=== PATIENT | female | born 1945 | race Caucasian/White ===

== ENCOUNTER 2020-09-23 00:47 | Inpatient (IN) | payer OTHER ==
[~2020-09-23] VITALS: Ht 154.9 cm; Wt 70.0 kg
[~2020-09-23 00:47] MED LIST: BISA10SU12 RC; DOCU100C36 PO; FLUD0.1T3 PO; Insulin Glargine,Hum SQ; LACT10SO PO; PANT40TA49 PO
[2020-09-23] MEDS ORDERED: MIDO10TA PO (02:58)
[2020-09-23] MEDS ORDERED: ONDA4TAB5 PO (02:58)
[2020-09-23] MEDS ORDERED: morphine solution SL (02:58)
[2020-09-23] MEDS ORDERED: INSU200I SQ (02:58)
[2020-09-23] MEDS ORDERED: INSU100V10 SQ (02:58)
[2020-09-23 04:20] LABS: BASOPHILS % (AUTO) 0.6 % (0.0-2.0); EOSINOPHILS % (AUTO) 0.9 % (0.0-7.0); MEAN CORPUSCULAR VOLUME 91.3 fL (75.5-95.3); MONOCYTES # (AUTO) 0.2 K/uL (2.0-10.0); NEUTROPHILS # (AUTO) 0.9 K/uL (1.8-8.9)
[2020-09-23 04:22] LABS: HEMATOCRIT 26.8 % (31.2-41.9); LYMPHOCYTES # (AUTO) 0.4 K/uL (20.0-40.0); LYMPHOCYTES % (AUTO) 24.6 % (20.5-51.5); MEAN CORPUSCULAR HEMOGLOBIN 30.6 uug (24.7-32.8); MEAN CORPUSCULAR HGB CONC 34 g/dL (32.3-35.6); MONOCYTES % (AUTO) 13.1 % (0.0-11.0); NEUTROPHILS % (AUTO) 60.8 % (38.5-71.5); PLATELET COUNT (AUTO) 127 K/uL (179-408); RED BLOOD CELL COUNT(AUTO) 2.94 MIL/uL (3.63-4.92)
[2020-09-23 04:41] LABS: WHITE BLOOD COUNT (AUTO) 1.5 K/uL (3.8-11.8)
[2020-09-23 04:45] LABS: CARBON DIOXIDE 27 mmol/L (21-32); CHLORIDE 97 mmol/L (98-107); GLUCOSE 169 mg/dL (74-106); POTASSIUM 4.3 mmol/L (3.5-5.1); UREA NITROGEN, BLOOD 56 mg/dL (7-18)
[2020-09-23 04:46] LABS: ALANINE AMINOTRANSFERASE 20 U/L (14-59); ALKALINE PHOSPHATASE 333 U/L (50-136); ASPARTATE AMINOTRANSFERASE 30 U/L (15-37); BILIRUBIN,TOTAL 0.4 mg/dL (0.2-1.0); FERRITIN 898 ng/mL (8-252)
[2020-09-23 04:48] LABS: TOTAL PROTEIN, SERUM 6.9 g/dL (6.4-8.2)
[2020-09-23] MEDS ORDERED: CEFTRIAXONE 1 G in IV DEXTROSE 5% 50 ML IV ONE (05:00)
[2020-09-23] MEDS ORDERED: AZITHROMYCIN IV 500 MG in IV DEXTROSE 5% 250 ML IV ONE (05:00)
[2020-09-23] MEDS ORDERED: DEXAMETHASONE SOD PHOSPHATE 4 MG INJ IV ONE (05:00)
[2020-09-23 05:05] LABS: CREATINE KINASE, TOTAL 23 U/L (26-192); LACTATE DEHYDROGENASE 254 U/L (81-234)
[2020-09-23] MEDS ORDERED: DEXAMETHASONE SOD PHOSPHATE 10 MG INJ ONE (05:26)
[2020-09-23] MEDS ORDERED: CEFTRIAXONE /D5W 50ML IVPB **ER PYXIS IV ONE (05:26)
[2020-09-23 06:02] LABS: EOSINOPHILS % (MANUAL) 1 % (0-8); LYMPHOCYTES % (MANUAL) 22 % (20-40); MONOCYTES % (MANUAL) 13 % (2-10); NEUTROPHILS % (MANUAL) 64 % (42-75)
[2020-09-23] MEDS ORDERED: AZITHROMYCIN 500MG/ D5W 250ML IVPB **ER PYXIS ONLY IV ONE (06:07)
--- NOTE | 2020-09-23 08:20 | NUR ---
Pt sleeping in bed, no distress noted.
[2020-09-23 09:59] LABS: CARBON DIOXIDE 25 mmol/L (21-32); CHLORIDE 100 mmol/L (98-107); CREATININE 2.7 mg/dL (0.6-1.3); GLUCOSE 212 mg/dL (74-106); POTASSIUM 4.4 mmol/L (3.5-5.1); UREA NITROGEN, BLOOD 54 mg/dL (7-18)
[2020-09-23 10:00] LABS: BASOPHILS % (AUTO) 0.5 % (0.0-2.0); EOSINOPHILS % (AUTO) 0.6 % (0.0-7.0); HEMATOCRIT 25.2 % (31.2-41.9); HEMOGLOBIN 8.5 g/dL (10.9-14.3); LYMPHOCYTES # (AUTO) 0.3 K/uL (20.0-40.0); LYMPHOCYTES % (AUTO) 29.4 % (20.5-51.5); MEAN CORPUSCULAR HGB CONC 34 g/dL (32.3-35.6); MEAN CORPUSCULAR VOLUME 91.8 fL (75.5-95.3); MONOCYTES # (AUTO) 0.1 K/uL (2.0-10.0); MONOCYTES % (AUTO) 6.7 % (0.0-11.0); NEUTROPHILS # (AUTO) 0.6 K/uL (1.8-8.9); NEUTROPHILS % (AUTO) 62.8 % (38.5-71.5); PLATELET COUNT (AUTO) 107 K/uL (179-408); RED BLOOD CELL COUNT(AUTO) 2.74 MIL/uL (3.63-4.92)
[2020-09-23 10:10] LABS: ALANINE AMINOTRANSFERASE 13 U/L (14-59); ALKALINE PHOSPHATASE 296 U/L (50-136); ASPARTATE AMINOTRANSFERASE 27 U/L (15-37); BILIRUBIN,TOTAL 0.2 mg/dL (0.2-1.0); TOTAL PROTEIN, SERUM 6.7 g/dL (6.4-8.2)
[2020-09-23 10:26] LABS: WHITE BLOOD COUNT (AUTO) 0.9 K/uL (3.8-11.8)
[2020-09-23] MEDS ORDERED: ONDANSETRON HCL 4 MG TABLET PO PRN (13:15)
[2020-09-23] MEDS ORDERED: BISACODYL 10 MG SUPP.RECT RC PRN (13:15)
[2020-09-23] MEDS ORDERED: Z GUARD REMEDY PASTE 57 GM TUBE TOP PRN (13:30)
[2020-09-23] MEDS ORDERED: MAGNESIUM HYDROXIDE 30 ML LIQUID UDC PO PRN (13:30)
[2020-09-23] MEDS ORDERED: ONDANSETRON 4 MG/2 ML VIAL IV PRN (13:30)
[2020-09-23] MEDS ORDERED: CEFEPIME HCL 1 G VIAL ONE ×2 (14:28→23:51)
[2020-09-23] MEDS ORDERED: PANTOPRAZOLE SODIUM 40 MG TABLET.DR PO ONE (14:28)
[2020-09-23] MEDS: CEFEPIME HCL 2 G in IV DEXTROSE 5% 100 ML IV SCH ×2 (15:00→23:54)
[2020-09-23] MEDS: DOCUSATE SODIUM 100 MG CAPSULE PO SCH ×2 (15:05→21:13)
[2020-09-23 16:47] LABS: *RHEUMATOID FACTOR SCREEN NEGATIVE (NEGATIVE)
[2020-09-23] MEDS ORDERED: INSULIN DETEMIR 300 UNIT/3 ML CARTRIDGE SQ SCH (17:00)
[2020-09-23] MEDS: INSULIN GLARGINE,HUM 300 UNITS/3 ML CARTRIDGE SQ SCH (21:16)
[2020-09-23] MEDS ORDERED: DOCUSATE SODIUM 100 MG/10 ML LIQUID UDC ONE (21:18)
[2020-09-23 23:07] LABS: NEUTROPHILS % (MANUAL) 60 % (42-75)
[2020-09-23 23:08] LABS: EOSINOPHILS % (MANUAL) 2 % (0-8); LYMPHOCYTES % (MANUAL) 30 % (20-40); MONOCYTES % (MANUAL) 8 % (2-10)
--- NOTE | 2020-09-23 23:45 | NUR ---
RECEIVED PT FROM ER VIA [facility]. DX:NEUTROPENIA. UNDER DR. BOYLE. PT IN NO ACUTE DISTRESS. IV INTACT. USP ASSESSMENT DONE. BELONGING LIST DONE. PT HAD NO BELONGINGS.ADMISSION PROCESS AND CARE PLAN INITIATED. PT IN NO ACUTE DISTRESS. SAFETY AND COMFORT PROVIDED. WILL CONTINUE TO MONITOR.
[2020-09-24 01:46] VITALS: BP 132/66
[2020-09-24] MEDS ORDERED: CEFEPIME HCL 1 G VIAL ONE (02:12)
[2020-09-24 04:00] VITALS: BP 129/68
--- NOTE | 2020-09-24 06:54 | NUR ---
PT SLEPT INTERMITTENTLY. PT IN NO ACUTE DISTRESS. PRESCRIBED MEDICATION GIVEN AND PT TOLERATED IT WELL. HEMODIALYSIS CONSENT SIGNED.SAFETY AND COMFORT PROVIDED. WILL ENDORSE TO INCOMING NURSE FOR CONTINUITY OF CARE.
--- NOTE | 2020-09-24 08:00 | NUR ---
patient on dialysis. Will give medications after
[2020-09-24] MEDS ORDERED: PANTOPRAZOLE SODIUM 40 MG TABLET.DR PO SCH (09:00)
[2020-09-24] MEDS: INSULIN GLARGINE,HUM 300 UNITS/3 ML CARTRIDGE SQ SCH ×2 (09:00→21:30)
[2020-09-24 09:55] LABS: BASOPHILS % (AUTO) 0.1 % (0.0-2.0); EOSINOPHILS % (AUTO) 0.1 % (0.0-7.0); HEMATOCRIT 22.5 % (31.2-41.9); HEMOGLOBIN 7.6 g/dL (10.9-14.3); LYMPHOCYTES # (AUTO) 0.2 K/uL (20.0-40.0); LYMPHOCYTES % (AUTO) 14.7 % (20.5-51.5); MEAN CORPUSCULAR HEMOGLOBIN 30.4 uug (24.7-32.8); MEAN CORPUSCULAR HGB CONC 34 g/dL (32.3-35.6); MEAN CORPUSCULAR VOLUME 90.7 fL (75.5-95.3); MONOCYTES # (AUTO) 0.2 K/uL (2.0-10.0); MONOCYTES % (AUTO) 11.9 % (0.0-11.0); NEUTROPHILS # (AUTO) 1.1 K/uL (1.8-8.9); NEUTROPHILS % (AUTO) 73.2 % (38.5-71.5); PLATELET COUNT (AUTO) 99 K/uL (179-408)
[2020-09-24 09:59] LABS: ALANINE AMINOTRANSFERASE 15 U/L (14-59); ALKALINE PHOSPHATASE 243 U/L (50-136); ASPARTATE AMINOTRANSFERASE 24 U/L (15-37); BILIRUBIN,TOTAL 0.3 mg/dL (0.2-1.0); CARBON DIOXIDE 25 mmol/L (21-32); CHLORIDE 102 mmol/L (98-107); CREATININE 2.3 mg/dL (0.6-1.3); GLUCOSE 209 mg/dL (74-106); MAGNESIUM 2.1 mg/dL (1.8-2.4); PHOSPHOROUS 4.6 mg/dL (2.5-4.9); POTASSIUM 4.2 mmol/L (3.5-5.1); TOTAL PROTEIN, SERUM 6.1 g/dL (6.4-8.2); UREA NITROGEN, BLOOD 62 mg/dL (7-18)
[2020-09-24 10:00] LABS: RED BLOOD CELL COUNT(AUTO) 2.48 MIL/uL (3.63-4.92); WHITE BLOOD COUNT (AUTO) 1.5 K/uL (3.8-11.8)
[2020-09-24 10:52] LABS: CHOLESTEROL 134 mg/dL (<200); HDL CHOLESTEROL 45 mg/dL (40-60); TRIGLYCERIDES 74 MG/DL (30-150)
[2020-09-24] MEDS ORDERED: CEFEPIME HCL 2 G in IV DEXTROSE 5% 100 ML IV SCH (11:00)
[2020-09-24 11:04] VITALS: BP 124/69
[2020-09-24] MEDS: MIDODRINE HCL 5 MG TABLET PO SCH ×3 (11:08→17:32)
[2020-09-24 11:26] LABS: *IMMUNOGLOBULIN G, SERUM 1927 mg/dL (586-1602); IMMUNOGLOBULIN A, SERUM 357 mg/dL (64-422); IMMUNOGLOBULIN M, SERUM 136 mg/dL (26-217)
[2020-09-24 13:09] LABS: A/G RATIO 0.6 (0.7-1.7); ALBUMIN 2.4 g/dL (2.9-4.4); ALPHA-1-GLOBULIN 0.4 g/dL (0.0-0.4); ALPHA-2-GLOBULIN 0.9 g/dL (0.4-1.0); BETA GLOBULIN 0.9 g/dL (0.7-1.3); GLOBULIN, TOTAL 4.2 g/dL (2.2-3.9); M-SPIKE Not Observed g/dL (Not Observed)
[2020-09-24 13:31] LABS: NEUTROPHILS % (MANUAL) 78 % (42-75)
[2020-09-24 13:32] LABS: BAND % (MANUAL) 2 % (0-10); LYMPHOCYTES % (MANUAL) 15 % (20-40); MONOCYTES % (MANUAL) 5 % (2-10)
[2020-09-24 15:04] VITALS: BP 129/70
[2020-09-24] MEDS ORDERED: DEXTROSE 50% 50 ML DISP.SYRIN IV PRN (15:30)
[2020-09-24 17:19] LABS: *ANTI-SCLERODERMA-70 AB <0.2 AI (0.0-0.9); *SJOGREN'S ANTI-SS-A <0.2 AI (0.0-0.9); *SJOGREN'S ANTI-SS-B <0.2 AI (0.0-0.9); *SMITH ANTIBODIES <0.2 AI (0.0-0.9); ANTI-DNA(DS) AB, QN 5 IU/mL (0-9)
[2020-09-24] MEDS: BLOOD SUGAR DIAGNOSTIC 1 EACH STRIP VI SCH (17:33)
[2020-09-24] MEDS: INSULIN REGULAR, HUMAN 300 UNIT/3 ML VIAL SQ PRN (17:35)
[2020-09-24 20:00] VITALS: BP 102/51
[2020-09-24 21:09] LABS: *BILIRUBIN,URIN NEGATIVE (NEGATIVE); *BLOOD, URINE NEGATIVE (NEGATIVE); *CLARITY,URINE SLIGHTLY CLOUDY (CLEAR); *COLOR,URINE YELLOW (YELLOW); *KETONES,URINE NEGATIVE (NEGATIVE); *UROBILINOGEN,URINE 0.2 E.U./dl (NORMAL); LEUKOCYTE ESTERASE ,URINE TRACE (NEGATIVE); NITRITE, URINE NEGATIVE (NEGATIVE); UGLUCOSE NEGATIVE (NEGATIVE)
[2020-09-24] MEDS: DOCUSATE SODIUM 100 MG CAPSULE PO SCH (21:28)
[2020-09-25] MEDS: CEFEPIME HCL 1 G in IV DEXTROSE 5% 50 ML IV SCH ×2 (00:15→23:29)
[2020-09-25 00:29] LABS: RBC,URINE 0-3 /HPF (0-3)
[2020-09-25 00:30] LABS: BACTERIA,URINE FEW /HPF (NONE SEEN); SQUAMOUS EPITHELIAL CELL,UR MANY /HPF (NONE SEEN); YEAST,URINE MANY /HPF (NONE SEEN)
[2020-09-25 04:00] VITALS: BP 126/69
--- NOTE | 2020-09-25 06:46 | NUR ---
INFORMATION SENT:FACE SHEET,24HRS,PROGRESS NOTES09/24,CONSULATION,IMAGING,PSF,UR09/24 FAX TO:[facility]/SABRA/[phone]/ [phone] FAX SENT BY RENA.
[2020-09-25] MEDS: BLOOD SUGAR DIAGNOSTIC 1 EACH STRIP VI SCH ×2 (06:57→16:30)
[2020-09-25] MEDS: PANTOPRAZOLE SODIUM 40 MG TABLET.DR PO SCH (06:57)
[2020-09-25 07:21] LABS: HEPATITIS B SURFACE AB Non Reactive (.); HEPATITIS B SURFACE AG Negative (Negative)
--- NOTE | 2020-09-25 07:30 | NUR ---
Received patient in bed, awake alert and oriented times 4. Patient is Swiss speaking but understands some Greek. No sign of distress noted. safety precautions in place with call light and belongings within reach. Will continue to monitor.
[2020-09-25] MEDS: MIDODRINE HCL 5 MG TABLET PO SCH ×2 (09:42→13:32)
[2020-09-25] MEDS: INSULIN GLARGINE,HUM 300 UNITS/3 ML CARTRIDGE SQ SCH ×2 (09:44→21:11)
[2020-09-25 11:45] LABS: CARBON DIOXIDE 28 mmol/L (21-32); CHLORIDE 105 mmol/L (98-107); CREATININE 2.3 mg/dL (0.6-1.3); GLUCOSE 158 mg/dL (74-106); POTASSIUM 4.5 mmol/L (3.5-5.1); UREA NITROGEN, BLOOD 47 mg/dL (7-18)
[2020-09-25 11:54] LABS: BASOPHILS % (AUTO) 0.5 % (0.0-2.0); EOSINOPHILS % (AUTO) 0.9 % (0.0-7.0); HEMATOCRIT 28.6 % (31.2-41.9); HEMOGLOBIN 9.4 g/dL (10.9-14.3); LYMPHOCYTES # (AUTO) 0.3 K/uL (20.0-40.0); LYMPHOCYTES % (AUTO) 10.5 % (20.5-51.5); MEAN CORPUSCULAR HEMOGLOBIN 30.1 uug (24.7-32.8); MEAN CORPUSCULAR HGB CONC 33 g/dL (32.3-35.6); MEAN CORPUSCULAR VOLUME 91.9 fL (75.5-95.3); MONOCYTES # (AUTO) 0.3 K/uL (2.0-10.0); MONOCYTES % (AUTO) 10.9 % (0.0-11.0); NEUTROPHILS # (AUTO) 1.9 K/uL (1.8-8.9); NEUTROPHILS % (AUTO) 77.2 % (38.5-71.5); PLATELET COUNT (AUTO) 135 K/uL (179-408); RED BLOOD CELL COUNT(AUTO) 3.12 MIL/uL (3.63-4.92); WHITE BLOOD COUNT (AUTO) 2.4 K/uL (3.8-11.8)
[2020-09-25 12:00] VITALS: BP 102/51
--- NOTE | 2020-09-25 14:00 | NUR ---
Patient discharge to [facility]. All paperwork and discharge teachings completed. Patient IV and ID bands removed. Gave all medications as ordered. Patient left in stable condition. Was picked up by Ambulance. Belongings lists completed and signed.
[2020-09-25 20:35] VITALS: BP 114/59
[2020-09-25] MEDS: DOCUSATE SODIUM 100 MG CAPSULE PO SCH (20:46)
[2020-09-25] MEDS: ACETAMINOPHEN 325 MG TABLET PO PRN (20:46)
--- NOTE | 2020-09-25 22:56 | NUR ---
Received pt resting in bed. Mongolian speaking. No acute distress noted. Denies pain/ discomfort. Temp 100.0 F, cooling measures provided, Tylenol given. Due meds given as ordered. Accucheck 163. Pt covid positive, on precaution. Safety measures maintained. Call light and personal items within reach. Will continue to monitor.
[2020-09-26 00:06] LABS: EOSINOPHILS % (MANUAL) 2 % (0-8); LYMPHOCYTES % (MANUAL) 12 % (20-40); MONOCYTES % (MANUAL) 10 % (2-10); NEUTROPHILS % (MANUAL) 76 % (42-75)
[2020-09-26 04:25] VITALS: BP 97/53
[2020-09-26] MEDS: PANTOPRAZOLE SODIUM 40 MG TABLET.DR PO SCH (06:03)
--- NOTE | 2020-09-26 06:12 | NUR ---
Accucheck this morning is 54. One cup of orange juice with 2 packets of sugar given. Pt denies s/s of hypoglycemia. No sweating noted. Pt warm to touch. Will recheck.
[2020-09-26] MEDS: BLOOD SUGAR DIAGNOSTIC 1 EACH STRIP VI SCH ×3 (06:30→16:17)
[2020-09-26] MEDS: MIDODRINE HCL 5 MG TABLET PO SCH ×4 (09:54→16:16)
[2020-09-26] MEDS: INSULIN GLARGINE,HUM 300 UNITS/3 ML CARTRIDGE SQ SCH ×2 (09:56→21:34)
[2020-09-26 11:56] VITALS: BP 110/54
[2020-09-26 15:14] VITALS: BP 128/63
[2020-09-26] MEDS: INSULIN REGULAR, HUMAN 300 UNIT/3 ML VIAL SQ PRN (16:21)
--- NOTE | 2020-09-26 18:00 | NUR ---
PT had uneventful day. Pt is in no acute distress. Call light is within reach.
[2020-09-26 20:12] VITALS: BP 117/62
[2020-09-26] MEDS: DOCUSATE SODIUM 100 MG CAPSULE PO SCH (21:20)
[2020-09-26] MEDS: ACETAMINOPHEN 325 MG TABLET PO PRN (21:21)
--- NOTE | 2020-09-26 22:14 | NUR ---
Patient in bed awake bulgarian speaking.Denies pain.No acute distress noted.ON RA saturating well at 97 %.Noted with temp of 100.2.Tylenol given. made aware with new orders given noted and carried out.Continue safety measures and isolation precaution.Call light with in reach.Will continue to monitor.
[2020-09-26] MEDS: CEFEPIME HCL 1 G in IV DEXTROSE 5% 50 ML IV SCH (22:55)
[2020-09-26 23:16] LABS: ALANINE AMINOTRANSFERASE 22 U/L (14-59); ALKALINE PHOSPHATASE 346 U/L (50-136); ASPARTATE AMINOTRANSFERASE 51 U/L (15-37); BILIRUBIN,TOTAL 0.3 mg/dL (0.2-1.0); CARBON DIOXIDE 26 mmol/L (21-32); CHLORIDE 103 mmol/L (98-107); CREATININE 2.4 mg/dL (0.6-1.3); GLUCOSE 127 mg/dL (74-106); POTASSIUM 4.1 mmol/L (3.5-5.1); TOTAL PROTEIN, SERUM 6.5 g/dL (6.4-8.2); UREA NITROGEN, BLOOD 51 mg/dL (7-18)
[2020-09-26 23:19] LABS: BASOPHILS % (AUTO) 0.7 % (0.0-2.0); EOSINOPHILS % (AUTO) 1.4 % (0.0-7.0); HEMATOCRIT 25.5 % (31.2-41.9); HEMOGLOBIN 8.5 g/dL (10.9-14.3); LYMPHOCYTES # (AUTO) 0.3 K/uL (20.0-40.0); LYMPHOCYTES % (AUTO) 12.2 % (20.5-51.5); MEAN CORPUSCULAR HEMOGLOBIN 30.2 uug (24.7-32.8); MEAN CORPUSCULAR HGB CONC 33 g/dL (32.3-35.6); MEAN CORPUSCULAR VOLUME 90.8 fL (75.5-95.3); MONOCYTES # (AUTO) 0.3 K/uL (2.0-10.0); MONOCYTES % (AUTO) 12.3 % (0.0-11.0); NEUTROPHILS # (AUTO) 1.6 K/uL (1.8-8.9); NEUTROPHILS % (AUTO) 73.4 % (38.5-71.5); PLATELET COUNT (AUTO) 123 K/uL (179-408); RED BLOOD CELL COUNT(AUTO) 2.81 MIL/uL (3.63-4.92); WHITE BLOOD COUNT (AUTO) 2.2 K/uL (3.8-11.8)
[2020-09-27 01:32] LABS: LYMPHOCYTES % (MANUAL) 13 % (20-40); MONOCYTES % (MANUAL) 12 % (2-10); NEUTROPHILS % (MANUAL) 75 % (42-75)
[2020-09-27 04:12] VITALS: BP 109/55
[2020-09-27] MEDS: PANTOPRAZOLE SODIUM 40 MG TABLET.DR PO SCH (06:14)
[2020-09-27] MEDS: BLOOD SUGAR DIAGNOSTIC 1 EACH STRIP VI SCH ×2 (06:15→16:52)
--- NOTE | 2020-09-27 06:15 | NUR ---
Patient awake. Denies pain.No acute distress noted.Afebrile.Bs 59 Gaston juice given. Perma cath in place on right upper chest.Dressing clean and dry.Call light with in reach.Will endorse to oncoming shift.
[2020-09-27 07:19] VITALS: BP 122/69
[2020-09-27 08:06] LABS: ALANINE AMINOTRANSFERASE 19 U/L (14-59); ALKALINE PHOSPHATASE 331 U/L (50-136); ASPARTATE AMINOTRANSFERASE 49 U/L (15-37); BASOPHILS % (AUTO) 0.8 % (0.0-2.0); BILIRUBIN,TOTAL 0.4 mg/dL (0.2-1.0); CARBON DIOXIDE 27 mmol/L (21-32); CHLORIDE 104 mmol/L (98-107); CREATININE 2.3 mg/dL (0.6-1.3); GLUCOSE 75 mg/dL (74-106); LYMPHOCYTES # (AUTO) 0.4 K/uL (20.0-40.0); MEAN CORPUSCULAR VOLUME 91.3 fL (75.5-95.3); MONOCYTES # (AUTO) 0.3 K/uL (2.0-10.0); NEUTROPHILS # (AUTO) 1.2 K/uL (1.8-8.9); POTASSIUM 4.2 mmol/L (3.5-5.1); TOTAL PROTEIN, SERUM 6.7 g/dL (6.4-8.2); UREA NITROGEN, BLOOD 54 mg/dL (7-18)
[2020-09-27 08:08] LABS: EOSINOPHILS % (AUTO) 2.3 % (0.0-7.0); LYMPHOCYTES % (AUTO) 20.2 % (20.5-51.5); MEAN CORPUSCULAR HEMOGLOBIN 30.5 uug (24.7-32.8); MEAN CORPUSCULAR HGB CONC 34 g/dL (32.3-35.6); MONOCYTES % (AUTO) 16.5 % (0.0-11.0); NEUTROPHILS % (AUTO) 60.2 % (38.5-71.5); PLATELET COUNT (AUTO) 111 K/uL (179-408); RED BLOOD CELL COUNT(AUTO) 2.95 MIL/uL (3.63-4.92)
[2020-09-27] MEDS: MIDODRINE HCL 5 MG TABLET PO SCH ×3 (09:45→16:52)
[2020-09-27] MEDS: INSULIN GLARGINE,HUM 300 UNITS/3 ML CARTRIDGE SQ SCH ×2 (09:45→20:43)
[2020-09-27 11:05] LABS: *BILIRUBIN,URIN NEGATIVE (NEGATIVE); *BLOOD, URINE NEGATIVE (NEGATIVE); *CLARITY,URINE SLIGHTLY CLOUDY (CLEAR); *COLOR,URINE YELLOW (YELLOW); *KETONES,URINE NEGATIVE (NEGATIVE); *UROBILINOGEN,URINE 0.2 E.U./dl (NORMAL); LEUKOCYTE ESTERASE ,URINE 1+ (NEGATIVE); NITRITE, URINE NEGATIVE (NEGATIVE); PH,URINE 5.5 (5.0-8.0); UGLUCOSE NEGATIVE (NEGATIVE)
[2020-09-27 12:00] VITALS: BP 118/63
[2020-09-27 15:52] LABS: BACTERIA,URINE RARE /HPF (NONE SEEN); RBC,URINE 0-3 /HPF (0-3); SQUAMOUS EPITHELIAL CELL,UR FEW /HPF (NONE SEEN); YEAST,URINE MODERATE /HPF (NONE SEEN)
[2020-09-27 16:00] VITALS: BP 129/75
--- NOTE | 2020-09-27 17:51 | NUR ---
PT is in no acute distress. Call light is within reach.
[2020-09-27 20:12] VITALS: BP 136/69
[2020-09-27] MEDS: DOCUSATE SODIUM 100 MG CAPSULE PO SCH (20:46)
[2020-09-27] MEDS: CEFEPIME HCL 1 G in IV DEXTROSE 5% 50 ML IV SCH (22:22)
[2020-09-27 23:04] LABS: EOSINOPHILS % (MANUAL) 3 % (0-8); LYMPHOCYTES % (MANUAL) 18 % (20-40); MONOCYTES % (MANUAL) 14 % (2-10); NEUTROPHILS % (MANUAL) 65 % (42-75)
--- NOTE | 2020-09-28 00:17 | NUR ---
AAOx4 Bedrest maintained. Admitted for neutropenia. COVID (+) Isolation maintained. Needs attended. Abdomen distended. IVF's infusing well via right arm heplock. No acute distress noted. Fall precautions maintained. Denies any pain at this time. Patient is adialysis patient. Patient oliguric. Right chest permacath intact. Will monitor patient. Fall precautions maintained. Call blair within reach. Siderails up for safety.
[2020-09-28 04:12] VITALS: BP 105/56
[2020-09-28] MEDS: PANTOPRAZOLE SODIUM 40 MG TABLET.DR PO SCH (06:19)
[2020-09-28] MEDS: BLOOD SUGAR DIAGNOSTIC 1 EACH STRIP VI SCH ×2 (06:39→16:53)
[2020-09-28 06:59] LABS: ALANINE AMINOTRANSFERASE 20 U/L (14-59); ALKALINE PHOSPHATASE 331 U/L (50-136); ASPARTATE AMINOTRANSFERASE 40 U/L (15-37); BILIRUBIN,TOTAL 0.5 mg/dL (0.2-1.0); CARBON DIOXIDE 25 mmol/L (21-32); CHLORIDE 102 mmol/L (98-107); CREATININE 2.2 mg/dL (0.6-1.3); GLUCOSE 186 mg/dL (74-106); POTASSIUM 3.6 mmol/L (3.5-5.1); TOTAL PROTEIN, SERUM 6.6 g/dL (6.4-8.2); UREA NITROGEN, BLOOD 59 mg/dL (7-18)
[2020-09-28 07:51] LABS: BASOPHILS % (AUTO) 0.7 % (0.0-2.0); EOSINOPHILS % (AUTO) 1.7 % (0.0-7.0); HEMOGLOBIN 8.8 g/dL (10.9-14.3); LYMPHOCYTES # (AUTO) 0.3 K/uL (20.0-40.0); LYMPHOCYTES % (AUTO) 15.4 % (20.5-51.5); MEAN CORPUSCULAR HEMOGLOBIN 30.8 uug (24.7-32.8); MEAN CORPUSCULAR HGB CONC 34 g/dL (32.3-35.6); MEAN CORPUSCULAR VOLUME 91.5 fL (75.5-95.3); MONOCYTES # (AUTO) 0.3 K/uL (2.0-10.0); MONOCYTES % (AUTO) 17.3 % (0.0-11.0); NEUTROPHILS # (AUTO) 1.2 K/uL (1.8-8.9); NEUTROPHILS % (AUTO) 64.9 % (38.5-71.5); PLATELET COUNT (AUTO) 112 K/uL (179-408); RED BLOOD CELL COUNT(AUTO) 2.84 MIL/uL (3.63-4.92)
[2020-09-28 08:14] LABS: WHITE BLOOD COUNT (AUTO) 1.8 K/uL (3.8-11.8)
[2020-09-28] MEDS: MIDODRINE HCL 5 MG TABLET PO SCH ×3 (09:23→16:53)
[2020-09-28] MEDS: INSULIN REGULAR, HUMAN 300 UNIT/3 ML VIAL SQ PRN (09:28)
[2020-09-28 12:22] VITALS: BP 118/61
[2020-09-28 16:00] VITALS: BP 143/72
[2020-09-28 20:00] LABS: EOSINOPHILS % (MANUAL) 1 % (0-8); LYMPHOCYTES % (MANUAL) 16 % (20-40); MONOCYTES % (MANUAL) 13 % (2-10); NEUTROPHILS % (MANUAL) 70 % (42-75)
[2020-09-28 20:12] VITALS: BP 140/69
[2020-09-28] MEDS: INSULIN GLARGINE,HUM 300 UNITS/3 ML CARTRIDGE SQ SCH (21:08)
[2020-09-28] MEDS: DOCUSATE SODIUM 100 MG CAPSULE PO SCH (21:08)
[2020-09-28] MEDS: CEFEPIME HCL 1 G in IV DEXTROSE 5% 50 ML IV SCH (23:41)
[2020-09-29 04:20] VITALS: BP 108/67
[2020-09-29] MEDS: PANTOPRAZOLE SODIUM 40 MG TABLET.DR PO SCH (06:02)
[2020-09-29] MEDS: BLOOD SUGAR DIAGNOSTIC 1 EACH STRIP VI SCH ×2 (07:38→17:54)
[2020-09-29] MEDS: VORICONAZOLE 200 MG TABLET PO SCH ×2 (09:00→21:00)
[2020-09-29] MEDS: MIDODRINE HCL 5 MG TABLET PO SCH ×3 (09:47→17:03)
[2020-09-29 11:56] VITALS: BP 129/76
[2020-09-29 12:09] LABS: ALANINE AMINOTRANSFERASE 12 U/L (14-59); ALKALINE PHOSPHATASE 296 U/L (50-136); ASPARTATE AMINOTRANSFERASE 34 U/L (15-37); BILIRUBIN,TOTAL 0.4 mg/dL (0.2-1.0); CARBON DIOXIDE 25 mmol/L (21-32); CHLORIDE 103 mmol/L (98-107); GLUCOSE 144 mg/dL (74-106); POTASSIUM 3.8 mmol/L (3.5-5.1); TOTAL PROTEIN, SERUM 6.9 g/dL (6.4-8.2); UREA NITROGEN, BLOOD 56 mg/dL (7-18)
[2020-09-29 12:13] LABS: BASOPHILS % (AUTO) 0.5 % (0.0-2.0); EOSINOPHILS % (AUTO) 1.8 % (0.0-7.0); HEMATOCRIT 27.4 % (31.2-41.9); LYMPHOCYTES # (AUTO) 0.4 K/uL (20.0-40.0); MEAN CORPUSCULAR HEMOGLOBIN 30.4 uug (24.7-32.8); MEAN CORPUSCULAR HGB CONC 33 g/dL (32.3-35.6); MEAN CORPUSCULAR VOLUME 92.1 fL (75.5-95.3); MONOCYTES # (AUTO) 0.3 K/uL (2.0-10.0); MONOCYTES % (AUTO) 15.1 % (0.0-11.0); NEUTROPHILS # (AUTO) 1.4 K/uL (1.8-8.9); NEUTROPHILS % (AUTO) 63.6 % (38.5-71.5); PLATELET COUNT (AUTO) 120 K/uL (179-408); RED BLOOD CELL COUNT(AUTO) 2.97 MIL/uL (3.63-4.92); WHITE BLOOD COUNT (AUTO) 2.2 K/uL (3.8-11.8)
[2020-09-29 15:44] VITALS: BP 117/53
[2020-09-29 17:52] LABS: LYMPHOCYTES % (MANUAL) 20 % (20-40); MONOCYTES % (MANUAL) 15 % (2-10); NEUTROPHILS % (MANUAL) 65 % (42-75)
[2020-09-29] MEDS: LINEZOLID 600 MG TABLET PO SCH (21:00)
[2020-09-29] MEDS: DOCUSATE SODIUM 100 MG CAPSULE PO SCH (21:12)
[2020-09-29] MEDS: INSULIN GLARGINE,HUM 300 UNITS/3 ML CARTRIDGE SQ SCH (21:17)
[2020-09-29 21:49] VITALS: BP 129/70
--- NOTE | 2020-09-30 | NUR ---
Per nursing turn supervisor new antibiotics order to start in the morning. Will endorse to oncoming shift
[2020-09-30] MEDS: PANTOPRAZOLE SODIUM 40 MG TABLET.DR PO SCH (06:10)
[2020-09-30] MEDS: BLOOD SUGAR DIAGNOSTIC 1 EACH STRIP VI SCH ×2 (06:42→17:11)
[2020-09-30 07:36] VITALS: BP 112/67
[2020-09-30 09:31] LABS: BASOPHILS % (AUTO) 0.9 % (0.0-2.0); HEMOGLOBIN 8.7 g/dL (10.9-14.3); LYMPHOCYTES # (AUTO) 0.3 K/uL (20.0-40.0); LYMPHOCYTES % (AUTO) 16.5 % (20.5-51.5); MEAN CORPUSCULAR HEMOGLOBIN 30.5 uug (24.7-32.8); MEAN CORPUSCULAR HGB CONC 34 g/dL (32.3-35.6); MEAN CORPUSCULAR VOLUME 90.7 fL (75.5-95.3); MONOCYTES # (AUTO) 0.3 K/uL (2.0-10.0); MONOCYTES % (AUTO) 14.6 % (0.0-11.0); NEUTROPHILS # (AUTO) 1.1 K/uL (1.8-8.9); PLATELET COUNT (AUTO) 109 K/uL (179-408); RED BLOOD CELL COUNT(AUTO) 2.87 MIL/uL (3.63-4.92)
[2020-09-30 09:34] LABS: CARBON DIOXIDE 24 mmol/L (21-32); CHLORIDE 105 mmol/L (98-107); CREATININE 1.9 mg/dL (0.6-1.3); GLUCOSE 91 mg/dL (74-106); PHOSPHOROUS 3.5 mg/dL (2.5-4.9); POTASSIUM 3.8 mmol/L (3.5-5.1); UREA NITROGEN, BLOOD 57 mg/dL (7-18)
[2020-09-30] MEDS: LINEZOLID 600 MG TABLET PO SCH ×2 (10:01→21:00)
[2020-09-30] MEDS: VORICONAZOLE 200 MG TABLET PO SCH ×2 (10:01→21:00)
[2020-09-30] MEDS: MIDODRINE HCL 5 MG TABLET PO SCH ×3 (10:08→17:12)
--- NOTE | 2020-09-30 10:40 | NUR ---
Still waiting for the consent for paracentesis.
[2020-09-30 11:08] VITALS: BP 109/59
[2020-09-30 11:39] LABS: WHITE BLOOD COUNT (AUTO) 1.7 K/uL (3.8-11.8)
[2020-09-30 15:08] VITALS: BP 113/66
[2020-09-30 20:18] VITALS: BP 142/55
[2020-09-30] MEDS: DOCUSATE SODIUM 100 MG CAPSULE PO SCH (21:00)
[2020-09-30] MEDS: INSULIN GLARGINE,HUM 300 UNITS/3 ML CARTRIDGE SQ SCH (21:02)
[2020-09-30 23:08] LABS: EOSINOPHILS % (MANUAL) 4 % (0-8); LYMPHOCYTES % (MANUAL) 12 % (20-40); MONOCYTES % (MANUAL) 11 % (2-10); NEUTROPHILS % (MANUAL) 73 % (42-75)
--- NOTE | 2020-10-01 04:08 | NUR ---
Pt rested well in between care; needs attended; repositioned q2h; continue to monitor; continue plan of care.
[2020-10-01 06:06] VITALS: BP 120/50
[2020-10-01] MEDS: PANTOPRAZOLE SODIUM 40 MG TABLET.DR PO SCH (06:51)
[2020-10-01] MEDS: BLOOD SUGAR DIAGNOSTIC 1 EACH STRIP VI SCH ×2 (06:52→17:38)
[2020-10-01 07:50] LABS: BASOPHILS % (AUTO) 0.7 % (0.0-2.0); EOSINOPHILS % (AUTO) 2.6 % (0.0-7.0); HEMOGLOBIN 8.7 g/dL (10.9-14.3); LYMPHOCYTES # (AUTO) 0.3 K/uL (20.0-40.0); LYMPHOCYTES % (AUTO) 20.1 % (20.5-51.5); MEAN CORPUSCULAR HEMOGLOBIN 30.4 uug (24.7-32.8); MEAN CORPUSCULAR HGB CONC 33 g/dL (32.3-35.6); MEAN CORPUSCULAR VOLUME 91.1 fL (75.5-95.3); MONOCYTES # (AUTO) 0.3 K/uL (2.0-10.0); MONOCYTES % (AUTO) 17.8 % (0.0-11.0); NEUTROPHILS % (AUTO) 58.8 % (38.5-71.5); PLATELET COUNT (AUTO) 111 K/uL (179-408); RED BLOOD CELL COUNT(AUTO) 2.86 MIL/uL (3.63-4.92)
[2020-10-01 08:01] LABS: CARBON DIOXIDE 23 mmol/L (21-32); CHLORIDE 105 mmol/L (98-107); CREATININE 2.2 mg/dL (0.6-1.3); GLUCOSE 103 mg/dL (74-106); PHOSPHOROUS 3.6 mg/dL (2.5-4.9); POTASSIUM 3.9 mmol/L (3.5-5.1); UREA NITROGEN, BLOOD 64 mg/dL (7-18)
[2020-10-01] MEDS: LINEZOLID 600 MG TABLET PO SCH ×2 (09:34→20:52)
[2020-10-01] MEDS: VORICONAZOLE 200 MG TABLET PO SCH ×2 (09:34→20:52)
[2020-10-01] MEDS: MIDODRINE HCL 5 MG TABLET PO SCH ×3 (09:34→17:00)
--- NOTE | 2020-10-01 10:00 | NUR ---
RECEIVED PATIENT IN BED AWAKE ALERT AND AWARE MOSTLY VINCENTIAN DENIES PAIN OR DISCOMFORTS AT THIS TIME .REMAIN ON COVID ISOLATION AND PRECAUTION AT THIS TIME ON ROOM AIR WITH NO SON.PERMA CATH REMAINS INTACT NO S/S OF HYPO/HYPERGLYCEMIC REACTIONS AT THIS TIME.WILL CONTINUE TO OBSERVE.
[2020-10-01 11:45] LABS: WHITE BLOOD COUNT (AUTO) 1.7 K/uL (3.8-11.8)
[2020-10-01 12:00] VITALS: BP 130/54
--- NOTE | 2020-10-01 12:00 | NUR ---
WBC IS 17. BELGICA YESTERDAY RADHA AWARE WITH NO NEW ORDERS AT THIS TIME.PATIENT IS ON COVID ISOLATION AT THIS TIME.
[2020-10-01 13:10] VITALS: BP 129/54
[2020-10-01 16:00] VITALS: BP 153/63
[2020-10-01] MEDS: INSULIN REGULAR, HUMAN 300 UNIT/3 ML VIAL SQ PRN (17:44)
--- NOTE | 2020-10-01 18:00 | NUR ---
RESTING SEE BY RADHA HOSPITALIST WITH NO NEW ORDERS AT THIS TIME
[2020-10-01 20:15] VITALS: BP 113/53
[2020-10-01] MEDS: DOCUSATE SODIUM 100 MG CAPSULE PO SCH (20:51)
[2020-10-01] MEDS: INSULIN GLARGINE,HUM 300 UNITS/3 ML CARTRIDGE SQ SCH (20:55)
[2020-10-01 22:38] LABS: EOSINOPHILS % (MANUAL) 2 % (0-8); LYMPHOCYTES % (MANUAL) 12 % (20-40); MONOCYTES % (MANUAL) 20 % (2-10); NEUTROPHILS % (MANUAL) 66 % (42-75)
[2020-10-02 04:22] VITALS: BP 116/60
[2020-10-02] MEDS: PANTOPRAZOLE SODIUM 40 MG TABLET.DR PO SCH (06:21)
[2020-10-02] MEDS: BLOOD SUGAR DIAGNOSTIC 1 EACH STRIP VI SCH ×2 (06:22→18:01)
[2020-10-02 08:00] VITALS: BP 104/57
--- NOTE | 2020-10-02 08:00 | NUR ---
Awake, alert, oriented x 4, occitan speaking. On moderate high back rest. Room air with O2 sat of 100%.
[2020-10-02] MEDS: LINEZOLID 600 MG TABLET PO SCH ×2 (10:57→21:44)
[2020-10-02] MEDS: VORICONAZOLE 200 MG TABLET PO SCH ×2 (10:57→21:00)
[2020-10-02] MEDS: MIDODRINE HCL 5 MG TABLET PO SCH ×3 (11:06→18:02)
[2020-10-02 11:21] LABS: CARBON DIOXIDE 22 mmol/L (21-32); CHLORIDE 105 mmol/L (98-107); CREATININE 2.4 mg/dL (0.6-1.3); GLUCOSE 146 mg/dL (74-106); PHOSPHOROUS 3.6 mg/dL (2.5-4.9); POTASSIUM 3.6 mmol/L (3.5-5.1); UREA NITROGEN, BLOOD 67 mg/dL (7-18)
[2020-10-02 11:36] LABS: BASOPHILS % (AUTO) 0.9 % (0.0-2.0); EOSINOPHILS % (AUTO) 2.4 % (0.0-7.0); HEMATOCRIT 25.2 % (31.2-41.9); HEMOGLOBIN 8.4 g/dL (10.9-14.3); LYMPHOCYTES # (AUTO) 0.4 K/uL (20.0-40.0); LYMPHOCYTES % (AUTO) 19.4 % (20.5-51.5); MEAN CORPUSCULAR HEMOGLOBIN 29.6 uug (24.7-32.8); MEAN CORPUSCULAR HGB CONC 33 g/dL (32.3-35.6); MEAN CORPUSCULAR VOLUME 88.8 fL (75.5-95.3); MONOCYTES # (AUTO) 0.3 K/uL (2.0-10.0); MONOCYTES % (AUTO) 13.9 % (0.0-11.0); NEUTROPHILS # (AUTO) 1.2 K/uL (1.8-8.9); NEUTROPHILS % (AUTO) 63.4 % (38.5-71.5); PLATELET COUNT (AUTO) 121 K/uL (179-408); RED BLOOD CELL COUNT(AUTO) 2.84 MIL/uL (3.63-4.92)
[2020-10-02 12:00] VITALS: BP 117/59
[2020-10-02 13:16] LABS: WHITE BLOOD COUNT (AUTO) 1.8 K/uL (3.8-11.8)
--- NOTE | 2020-10-02 14:30 | NUR ---
Noted distended abdomen. With paracentesis order, consent signed 09/30, called ultrasound to follow up schedule
[2020-10-02 16:00] VITALS: BP 134/62
[2020-10-02] MEDS: INSULIN REGULAR, HUMAN 300 UNIT/3 ML VIAL SQ PRN (18:04)
--- NOTE | 2020-10-02 19:17 | NUR ---
Eating fairly. Resting comfortably. Room air, not in distress
--- NOTE | 2020-10-02 19:55 | NUR ---
Received patient in bed awake able to make needs known.On RA saturating 97%.No s/s of distress noted.Iv on left FA patent and intact.Compliant with medications.Continue on isolation for covid.Call light with in reach.Will continue to monitor.
[2020-10-02 20:02] LABS: BAND % (MANUAL) 1 % (0-10); EOSINOPHILS % (MANUAL) 5 % (0-8); LYMPHOCYTES % (MANUAL) 30 % (20-40); MONOCYTES % (MANUAL) 2 % (2-10); NEUTROPHILS % (MANUAL) 62 % (42-75)
[2020-10-02 20:41] VITALS: BP 134/58
--- NOTE | 2020-10-02 21:30 | NUR ---
Vfend not given at this time d/t not available.Educational Recruiter made aware.
[2020-10-02] MEDS: DOCUSATE SODIUM 100 MG CAPSULE PO SCH (21:44)
[2020-10-02] MEDS: INSULIN GLARGINE,HUM 300 UNITS/3 ML CARTRIDGE SQ SCH (21:49)
[2020-10-03 05:47] VITALS: BP 114/61
[2020-10-03] MEDS: PANTOPRAZOLE SODIUM 40 MG TABLET.DR PO SCH (06:09)
[2020-10-03] MEDS: BLOOD SUGAR DIAGNOSTIC 1 EACH STRIP VI SCH ×2 (06:09→16:46)
[2020-10-03] MEDS: INSULIN REGULAR, HUMAN 300 UNIT/3 ML VIAL SQ PRN ×2 (08:14→16:45)
[2020-10-03] MEDS: MIDODRINE HCL 5 MG TABLET PO SCH ×3 (09:00→16:47)
[2020-10-03] MEDS: LINEZOLID 600 MG TABLET PO SCH ×2 (09:02→21:28)
[2020-10-03] MEDS: VORICONAZOLE 200 MG TABLET PO SCH ×2 (10:11→21:28)
[2020-10-03] MEDS ORDERED: TBO-FILGRASTIM 300 MCG/0.5 ML SYRINGE SQ ONE (11:30)
[2020-10-03 12:00] VITALS: BP 117/59
[2020-10-03 16:57] VITALS: BP 112/47
--- NOTE | 2020-10-03 18:55 | NUR ---
paracentesis done today afternoon
--- NOTE | 2020-10-03 19:30 | NUR ---
RECEIVED PT AWAKE, ALERT AND ORIENTEDX4. IN NO ACUTE DISTRESS. IV INTACT. PT ON ROOM AIR. SAFETY AND COMFORT PROVIDED. WILL CONTINUE TO MONITOR.
[2020-10-03 20:45] VITALS: BP 105/49
[2020-10-03] MEDS: DOCUSATE SODIUM 100 MG CAPSULE PO SCH (21:27)
[2020-10-03] MEDS: ACETAMINOPHEN 325 MG TABLET PO PRN (21:28)
[2020-10-03] MEDS: INSULIN GLARGINE,HUM 300 UNITS/3 ML CARTRIDGE SQ SCH (21:33)
--- NOTE | 2020-10-04 00:30 | NUR ---
7000 ML FLUID FROM ASCITES TAKEN DOWN TO LAB.
[2020-10-04 04:38] VITALS: BP 95/52
[2020-10-04 05:27] LABS: BASOPHILS # (AUTO) 0.1 K/uL (0.0-8.0); BASOPHILS % (AUTO) 0.3 % (0.0-2.0); EOSINOPHILS # (AUTO) 0.1 K/uL (0.0-0.7); EOSINOPHILS % (AUTO) 0.4 % (0.0-7.0); HEMATOCRIT 26.5 % (31.2-41.9); HEMOGLOBIN 8.9 g/dL (10.9-14.3); LYMPHOCYTES # (AUTO) 0.6 K/uL (20.0-40.0); LYMPHOCYTES % (AUTO) 2.8 % (20.5-51.5); MEAN CORPUSCULAR HGB CONC 34 g/dL (32.3-35.6); MEAN CORPUSCULAR VOLUME 89.4 fL (75.5-95.3); MONOCYTES # (AUTO) 0.5 K/uL (2.0-10.0); MONOCYTES % (AUTO) 2.3 % (0.0-11.0); NEUTROPHILS # (AUTO) 21.2 K/uL (1.8-8.9); NEUTROPHILS % (AUTO) 94.2 % (38.5-71.5); PLATELET COUNT (AUTO) 132 K/uL (179-408); RED BLOOD CELL COUNT(AUTO) 2.97 MIL/uL (3.63-4.92); WHITE BLOOD COUNT (AUTO) 22.5 K/uL (3.8-11.8)
[2020-10-04 05:56] LABS: ALANINE AMINOTRANSFERASE 13 U/L (14-59); ALKALINE PHOSPHATASE 246 U/L (50-136); ASPARTATE AMINOTRANSFERASE 20 U/L (15-37); BILIRUBIN,TOTAL 0.5 mg/dL (0.2-1.0); CARBON DIOXIDE 23 mmol/L (21-32); CHLORIDE 103 mmol/L (98-107); CREATININE 2.7 mg/dL (0.6-1.3); GLUCOSE 117 mg/dL (74-106); POTASSIUM 3.7 mmol/L (3.5-5.1); TOTAL PROTEIN, SERUM 6.2 g/dL (6.4-8.2); UREA NITROGEN, BLOOD 73 mg/dL (7-18)
--- NOTE | 2020-10-04 06:20 | NUR ---
PT SLEPT INTERMITTENTLY. PT IN NO ACUTE DISTRESS. PT IV INTACT. PT ON ROOM AIR. PRESCRIBED MEDICATION GIVEN AND PT TOLERATED IT WELL. PT GIVEN TYLENOL AT 2128H PER PT REQUEST. PT TOLERATED IT WELL. VITAL SIGNS WNL. SAFETY AND COMFORT PROVIDED. ALL NEEDS ARE MET. WILL ENDORSE TO INCOMING NURSE FOR CONTINUITY OF CARE.
[2020-10-04] MEDS: BLOOD SUGAR DIAGNOSTIC 1 EACH STRIP VI SCH ×2 (06:36→16:15)
[2020-10-04] MEDS: PANTOPRAZOLE SODIUM 40 MG TABLET.DR PO SCH (06:36)
[2020-10-04 08:31] VITALS: BP 99/51
[2020-10-04] MEDS: MIDODRINE HCL 5 MG TABLET PO SCH ×3 (09:31→16:16)
[2020-10-04] MEDS: VORICONAZOLE 200 MG TABLET PO SCH ×2 (09:31→20:53)
[2020-10-04] MEDS: LINEZOLID 600 MG TABLET PO SCH ×2 (09:31→20:53)
[2020-10-04 11:30] VITALS: BP 107/54
--- NOTE | 2020-10-04 11:54 | NUR ---
CALL RECEIVED FROM TIME STUDY ENGINEER STATED D/C PLANNING ACCEPTING FACILITY WANTS A RAPID TEST SO ORDERED UNDER DMITYR OFFAL ROLLER HOSPITALIST ASSIGNED FOR THE PATIENT TODAY.
[2020-10-04 15:23] VITALS: BP 121/56
--- NOTE | 2020-10-04 16:20 | NUR ---
BLOOD SUGAR IS 144 PATIENT REFUSED INSULIN STATED THAT ITS LOW ENOUGH DID NOT WANT TO GET HYPOGLYCEMIA EXPLAINED TO HER IN [place] PATIENTS RIGHT TO REFUSE RESPECTED WILL ENDORSE AND OBSERVE
--- NOTE | 2020-10-04 18:00 | NUR ---
RESTING IN BED DENIES PAIN OS DISCOMFORTS AT THIS TIME MADE COMFORTABLE WILL CONTINUE TO OBSERVE
--- NOTE | 2020-10-04 19:30 | NUR ---
RECEIVED PT AWAKE, ALERT AND ORIENTEDX4. IN NO ACUTE DISTRESS. IV INTACT. PT ON ROOM AIR. PT OFFERED BOWEL MOVEMENT MEDICATION . PT REFUSED. OFFERED PRUNE JUICE FOR THE PT. SAFETY AND COMFORT PROVIDED. WILL CONTINUE TO MONITOR.
[2020-10-04] MEDS: DOCUSATE SODIUM 100 MG CAPSULE PO SCH (20:52)
[2020-10-04] MEDS: ACETAMINOPHEN 325 MG TABLET PO PRN (20:53)
[2020-10-04] MEDS: INSULIN GLARGINE,HUM 300 UNITS/3 ML CARTRIDGE SQ SCH (20:57)
--- NOTE | 2020-10-04 21:00 | NUR ---
Lab called for covid antigen result for pt is positive.
[2020-10-04 21:10] VITALS: BP 105/53
[2020-10-05] MEDS: PANTOPRAZOLE SODIUM 40 MG TABLET.DR PO SCH (06:28)
[2020-10-05] MEDS: BLOOD SUGAR DIAGNOSTIC 1 EACH STRIP VI SCH ×2 (06:33→17:18)
--- NOTE | 2020-10-05 06:37 | NUR ---
PT SLEPT INTERMITTENTLY. PT IN NO ACUTE DISTRESS. IV INTACT. PT ON ROOM AIR. PT OFFERED PRUNE JUICE T PROMOTE BOWEL MOVEMENT. PT GIVEN TYLENOL PRN AT 2052H PER PT REQUEST. SAFETY AND COMFORT PROVIDED. WILL ENDORSE TO INCOMING NURSE FOR CONTINUITY OF CARE.
[2020-10-05 06:40] VITALS: BP 114/59
[2020-10-05 09:05] LABS: BASOPHILS # (AUTO) 0.1 K/uL (0.0-8.0); BASOPHILS % (AUTO) 0.9 % (0.0-2.0); EOSINOPHILS % (AUTO) 0.3 % (0.0-7.0); HEMATOCRIT 28.2 % (31.2-41.9); HEMOGLOBIN 9.5 g/dL (10.9-14.3); LYMPHOCYTES # (AUTO) 0.3 K/uL (20.0-40.0); LYMPHOCYTES % (AUTO) 2.2 % (20.5-51.5); MEAN CORPUSCULAR HEMOGLOBIN 30.3 uug (24.7-32.8); MEAN CORPUSCULAR HGB CONC 34 g/dL (32.3-35.6); MEAN CORPUSCULAR VOLUME 90.3 fL (75.5-95.3); MONOCYTES # (AUTO) 0.2 K/uL (2.0-10.0); MONOCYTES % (AUTO) 1.3 % (0.0-11.0); NEUTROPHILS # (AUTO) 13.2 K/uL (1.8-8.9); NEUTROPHILS % (AUTO) 95.3 % (38.5-71.5); PLATELET COUNT (AUTO) 137 K/uL (179-408); RED BLOOD CELL COUNT(AUTO) 3.13 MIL/uL (3.63-4.92); WHITE BLOOD COUNT (AUTO) 13.9 K/uL (3.8-11.8)
[2020-10-05 09:07] LABS: CARBON DIOXIDE 23 mmol/L (21-32); CHLORIDE 103 mmol/L (98-107); CREATININE 2.8 mg/dL (0.6-1.3); GLUCOSE 120 mg/dL (74-106); POTASSIUM 4.5 mmol/L (3.5-5.1); UREA NITROGEN, BLOOD 72 mg/dL (7-18)
[2020-10-05] MEDS: LINEZOLID 600 MG TABLET PO SCH ×2 (10:55→20:56)
[2020-10-05] MEDS: VORICONAZOLE 200 MG TABLET PO SCH ×2 (10:55→20:56)
[2020-10-05] MEDS: MIDODRINE HCL 5 MG TABLET PO SCH ×3 (11:05→17:19)
[2020-10-05] MEDS: INSULIN REGULAR, HUMAN 300 UNIT/3 ML VIAL SQ PRN (11:08)
[2020-10-05 12:01] VITALS: BP 112/54
[2020-10-05 16:07] VITALS: BP 124/64
[2020-10-05 20:12] VITALS: BP 123/64
[2020-10-05] MEDS: DOCUSATE SODIUM 100 MG CAPSULE PO SCH (20:56)
--- NOTE | 2020-10-05 21:00 | NUR ---
patient discharged safely with [facility] ambulance personnel. v/s stable and no s/s of acute distress. covid + at time of discharge. all medication for night given. Violetta at [facility] informed all night medication given. paperwork provided to ambulance personnel and discharge information provided to patient. IV line discontinued and ID band off. belongings list completed and signed. no belongings with patient at time of admission and discharge.
[2020-10-05] MEDS: INSULIN GLARGINE,HUM 300 UNITS/3 ML CARTRIDGE SQ SCH (21:01)
== END 2020-10-05 21:20 | DRG 682 ==
LOC: ER 01:06 → TRANSITION 13:25 → TELE3 23:41 → MEDSURG3 09-24 20:26
PROVIDERS: ADMIT Internal Medicine; ATTEND Internal Medicine
PROC: 5A1D70Z Performance of Urinary Filtration, Intermittent, Less than 6 Hours Per Day (ICD-10-PCS; principal; 2020-09-24)
PROC: 0W9G3ZZ Drainage of Peritoneal Cavity, Percutaneous Approach (ICD-10-PCS; 2020-10-03)
DX: I12.0 Hypertensive chronic kidney disease with stage 5 chronic kidney disease or end stage renal disease (principal); N18.6 End stage renal disease; U07.1 COVID-19; I21.A1 Myocardial infarction type 2; D61.818 Other pancytopenia; N39.0 Urinary tract infection, site not specified; B37.49 Other urogenital candidiasis; K76.6 Portal hypertension; R18.8 Other ascites; E11.22 Type 2 diabetes mellitus with diabetic chronic kidney disease; Z99.2 Dependence on renal dialysis; R16.1 Splenomegaly, not elsewhere classified; K72.90 Hepatic failure, unspecified without coma; D63.1 Anemia in chronic kidney disease; B95.2 Enterococcus as the cause of diseases classified elsewhere
CPT/HCPCS: 36415; 70030-TC; 71045; 76700; 82784; 83605; 83615; 83735; 84100; 84155; 84165; 85025; 85730; 86038; 86140; 86334; 86430; 86706; 86803; 87040; 87070; 87077; 87086; 87205; 87340; 90937; 93005; C1758; G0378; J0456; J0692; J0696; J1100; J1447; J1815; J7040; J7050; J7060

== ENCOUNTER 2020-10-19 18:36 | Inpatient (IN) | payer OTHER ==
[~2020-10-19] VITALS: Ht 157.5 cm; Wt 65.5 kg
[~2020-10-19 18:36] MED LIST changes: -FLUD0.1T3 PO; +INSU100V10 SQ; +INSU200I SQ; -Insulin Glargine,Hum SQ; +MIDO10TA PO; +ONDA4TAB5 PO; +morphine solution SL
[2020-10-19] MEDS ORDERED: INSU100V11 SUBCUT (19:30)
[2020-10-19] MEDS ORDERED: VIT1TABL46 PO (19:30)
--- NOTE | 2020-10-19 20:40 | NUR ---
Patient was placed in 4A room with monitor.
--- NOTE | 2020-10-19 20:45 | NUR ---
DR. HERBERT seeing patient.
[2020-10-19] MEDS ORDERED: MORPHINE SULFATE 4 MG/1 ML DISP.SYRIN IV ONE (21:00)
[2020-10-19] MEDS ORDERED: ONDANSETRON 4 MG/2 ML VIAL IV ONE (21:00)
[2020-10-19] MEDS ORDERED: ONDANSETRON 4 MG/2 ML VIAL ONE (21:01)
[2020-10-19] MEDS ORDERED: MORPHINE SULFATE 4 MG/1 ML DISP.SYRIN ONE (21:01)
--- NOTE | 2020-10-19 21:26 | NUR ---
RETURN FROM CAT SCAN
[2020-10-19 22:08] LABS: BASOPHILS % (AUTO) 0.5 % (0.0-2.0); HEMATOCRIT 27.4 % (31.2-41.9); LYMPHOCYTES # (AUTO) 0.3 K/uL (20.0-40.0); LYMPHOCYTES % (AUTO) 7.5 % (20.5-51.5); MEAN CORPUSCULAR HEMOGLOBIN 29.6 uug (24.7-32.8); MEAN CORPUSCULAR HGB CONC 33 g/dL (32.3-35.6); MEAN CORPUSCULAR VOLUME 90.3 fL (75.5-95.3); MONOCYTES # (AUTO) 0.3 K/uL (2.0-10.0); MONOCYTES % (AUTO) 8.5 % (0.0-11.0); NEUTROPHILS % (AUTO) 82.5 % (38.5-71.5); PLATELET COUNT (AUTO) 192 K/uL (179-408); RED BLOOD CELL COUNT(AUTO) 3.04 MIL/uL (3.63-4.92); WHITE BLOOD COUNT (AUTO) 3.6 K/uL (3.8-11.8)
[2020-10-19 22:22] LABS: CARBON DIOXIDE 29 mmol/L (21-32); CHLORIDE 93 mmol/L (98-107); CREATININE 2.3 mg/dL (0.6-1.3); GLUCOSE 217 mg/dL (74-106); UREA NITROGEN, BLOOD 40 mg/dL (7-18)
[2020-10-19 22:27] LABS: ALANINE AMINOTRANSFERASE 16 U/L (14-59); ALKALINE PHOSPHATASE 317 U/L (50-136); ASPARTATE AMINOTRANSFERASE 24 U/L (15-37); BILIRUBIN,DIRECT 0.2 mg/dL (0.0-0.2); BILIRUBIN,TOTAL 0.5 mg/dL (0.2-1.0); LIPASE 161 U/L (73-393); TOTAL PROTEIN, SERUM 7.5 g/dL (6.4-8.2)
[2020-10-19 23:06] LABS: *BLOOD, URINE NEGATIVE (NEGATIVE); *CLARITY,URINE SLIGHTLY CLOUDY (CLEAR); *COLOR,URINE DARK YELLOW (YELLOW); *KETONES,URINE NEGATIVE (NEGATIVE); *UROBILINOGEN,URINE 0.2 E.U./dl (NORMAL); LEUKOCYTE ESTERASE ,URINE NEGATIVE (NEGATIVE); NITRITE, URINE NEGATIVE (NEGATIVE); PH,URINE 5.5 (5.0-8.0); UGLUCOSE NEGATIVE (NEGATIVE)
[2020-10-19 23:14] LABS: *BILIRUBIN,URIN 1+ (NEGATIVE)
[2020-10-19 23:24] LABS: BACTERIA,URINE FEW /HPF (NONE SEEN); RBC,URINE 0-3 /HPF (0-3); SQUAMOUS EPITHELIAL CELL,UR FEW /HPF (NONE SEEN)
[2020-10-19 23:25] LABS: URINE AMORPHOUS URATE MANY /HPF; YEAST,URINE MANY /HPF (NONE SEEN)
--- NOTE | 2020-10-20 02:23 | NUR ---
Notified Dr. Brar of patient's pain status of 05/17. Pending orders of morphine.
[2020-10-20] MEDS ORDERED: ONDANSETRON 4 MG/2 ML VIAL IV ONE (02:45)
[2020-10-20] MEDS ORDERED: MORPHINE SULFATE 4 MG/1 ML DISP.SYRIN IV ONE (02:45)
[2020-10-20] MEDS ORDERED: ONDANSETRON 4 MG/2 ML VIAL ONE (02:50)
[2020-10-20] MEDS ORDERED: MORPHINE SULFATE 4 MG/1 ML DISP.SYRIN ONE (02:50)
--- NOTE | 2020-10-20 03:30 | NUR ---
Patient states pain has decreased to 6/10 after giving morphine.
[2020-10-20] MEDS ORDERED: MORPHINE SULFATE 2 MG/1 ML DISP.SYRIN IV PRN (05:15)
[2020-10-20] MEDS ORDERED: BISACODYL 10 MG SUPP.RECT RC PRN (05:15)
[2020-10-20] MEDS ORDERED: ONDANSETRON 4 MG/2 ML VIAL IV PRN (05:15)
[2020-10-20] MEDS ORDERED: DEXTROSE 50% 50 ML DISP.SYRIN IV PRN (05:30)
--- NOTE | 2020-10-20 05:40 | NUR ---
Hernan falcon in ED - 10/20/20 at 0550 by WILMER Report given to MOHIT RILEY, ROOM NUMBER FOR PATIENT IS 316, GOOD TO TRANSPORT PATIENT THERE FROM 06:15 onward.
--- NOTE | 2020-10-20 05:41 | NUR ---
Patient admitted by Dr. Denton under admitting diagnosis Ascitis/PNA/UTI to TELE unit. Contacted med-surg/tele floor for room #, pending call-back from MOHIT Elliott.
--- NOTE | 2020-10-20 05:50 | NUR ---
Report given to MOHIT RILEY, ROOM NUMBER FOR PATIENT IS 316, GOOD TO TRANSPORT PATIENT THERE FROM 06:15 onward.
[2020-10-20 05:57] LABS: BASOPHILS % (AUTO) 0.8 % (0.0-2.0); CARBON DIOXIDE 27 mmol/L (21-32); CHLORIDE 95 mmol/L (98-107); CREATININE 2.4 mg/dL (0.6-1.3); EOSINOPHILS # (AUTO) 0.1 K/uL (0.0-0.7); EOSINOPHILS % (AUTO) 2.2 % (0.0-7.0); GLUCOSE 180 mg/dL (74-106); HEMATOCRIT 23.9 % (31.2-41.9); LYMPHOCYTES # (AUTO) 0.3 K/uL (20.0-40.0); LYMPHOCYTES % (AUTO) 8.6 % (20.5-51.5); MEAN CORPUSCULAR HEMOGLOBIN 30.1 uug (24.7-32.8); MEAN CORPUSCULAR HGB CONC 33 g/dL (32.3-35.6); MEAN CORPUSCULAR VOLUME 90.3 fL (75.5-95.3); MONOCYTES # (AUTO) 0.4 K/uL (2.0-10.0); MONOCYTES % (AUTO) 10.9 % (0.0-11.0); NEUTROPHILS # (AUTO) 2.7 K/uL (1.8-8.9); NEUTROPHILS % (AUTO) 77.5 % (38.5-71.5); PLATELET COUNT (AUTO) 183 K/uL (179-408); POTASSIUM 4.1 mmol/L (3.5-5.1); RED BLOOD CELL COUNT(AUTO) 2.65 MIL/uL (3.63-4.92); UREA NITROGEN, BLOOD 43 mg/dL (7-18); WHITE BLOOD COUNT (AUTO) 3.5 K/uL (3.8-11.8)
[2020-10-20] MEDS ORDERED: PIPERACILLIN SODIUM/TAZOBACTAM 2.25 G in IV DEXTROSE 5% 50 ML IV SCH (06:00)
[2020-10-20 06:02] LABS: ALANINE AMINOTRANSFERASE 13 U/L (14-59); ALKALINE PHOSPHATASE 283 U/L (50-136); ASPARTATE AMINOTRANSFERASE 20 U/L (15-37); BILIRUBIN,TOTAL 0.5 mg/dL (0.2-1.0); MAGNESIUM 1.9 mg/dL (1.8-2.4); PHOSPHOROUS 3.9 mg/dL (2.5-4.9)
--- NOTE | 2020-10-20 06:35 | NUR ---
Jodi DennyTelephonic Nurse stated that the patient can no longer be transferred to med-surg/tele and has to be held in the ER.
[2020-10-20] MEDS: BLOOD SUGAR DIAGNOSTIC 1 EACH STRIP VI SCH ×4 (07:38→21:23)
--- NOTE | 2020-10-20 08:00 | NUR ---
Patient laying on gurny with no distress noted. Abdominal distented but soft. Denies pain at this time.
[2020-10-20] MEDS: PIPERACILLIN/TAZO 2.25 G in IV DEXTROSE 5% 50 ML IV SCH ×3 (08:01→23:47)
[2020-10-20] MEDS: FOLIC ACID/VITAMIN B COMP W-C TABLET PO SCH (09:00)
[2020-10-20] MEDS ORDERED: Medication Not On Formulary EA (Vit B Cmplx 3/Fa/Vit C/Biotin (Rena-Vite Rx Tablet) 1 EA PO SCH (09:00)
[2020-10-20] MEDS: PANTOPRAZOLE SODIUM 40 MG TABLET.DR PO SCH (09:00)
[2020-10-20] MEDS ORDERED: LACTULOSE PO SCH (09:00)
[2020-10-20] MEDS: FLUCONAZOLE 200 MG/NS 100ML IV 100 MG in PREMIXED 1 EACH IV SCH (09:10)
--- NOTE | 2020-10-20 11:40 | NUR ---
Transfered to 3rd floor Tele via gurny with no distress noted.
--- NOTE | 2020-10-20 11:45 | NUR ---
ADMITTED FROM [facility] VIA ER A 75 YO FEMALE C/O ABDOMINAL PAIN, AWAKE ALERT AND VATICAN CITIZEN SPEAKING ONLY. ADMITTED WITH DX OF ASCITES, PNEUMONIA, UTI. ADMISSION ASSESSMENT INITIATED.
--- NOTE | 2020-10-20 12:17 | NUR ---
0900 meds not given patient still in ER
[2020-10-20 12:38] VITALS: BP 117/63
[2020-10-20] MEDS: INSULIN REGULAR, HUMAN 300 UNIT/3 ML VIAL SQ PRN ×3 (12:49→21:37)
--- NOTE | 2020-10-20 14:10 | NUR ---
REMOVED 5300 CC OF ABDOMINAL FLUID POST PARACENTESIS.
[2020-10-20 16:15] VITALS: BP 114/61
[2020-10-20] MEDS: LACTULOSE 20 G/30 ML LIQUID UDC PO SCH (16:46)
--- NOTE | 2020-10-20 19:30 | NUR ---
Pt received awake and in bed. Denies pain or SOB. Pt is on RA with no s/s of respiratory distress. Sinus tachy on monitor at 108 bpm. No other issues or concerns at thus time.
[2020-10-20 21:09] VITALS: BP 119/70
[2020-10-20] MEDS: DOCUSATE SODIUM 100 MG CAPSULE PO SCH (21:18)
[2020-10-20] MEDS: INSULIN GLARGINE,HUM 300 UNITS/3 ML CARTRIDGE SQ SCH (21:31)
[2020-10-21 00:09] VITALS: BP 115/57
[2020-10-21 04:09] VITALS: BP 100/50
[2020-10-21] MEDS: PANTOPRAZOLE SODIUM 40 MG TABLET.DR PO SCH (06:43)
[2020-10-21] MEDS: BLOOD SUGAR DIAGNOSTIC 1 EACH STRIP VI SCH ×4 (06:47→20:41)
--- NOTE | 2020-10-21 07:01 | NUR ---
Pt slept throughout the night with no complaints. Denies pain or SOB. Safety and comfort provided. ST on monitor. No other issues or concerns at this time. Will endorse to day shift.
--- NOTE | 2020-10-21 08:00 | NUR ---
AWAKE ALERT AND ANSWERS QUESTIONS APPROPRIATELY, FILIPINO SPEAKING AND ABLE TO TO VERBALIZE NEEDS WELL
[2020-10-21] MEDS: INSULIN REGULAR, HUMAN 300 UNIT/3 ML VIAL SQ PRN ×4 (08:01→20:50)
[2020-10-21] MEDS: LACTULOSE 20 G/30 ML LIQUID UDC PO SCH (08:02)
[2020-10-21] MEDS: SPIRONOLACTONE 50 MG TABLET PO SCH (08:02)
[2020-10-21] MEDS: PIPERACILLIN/TAZO 2.25 G in IV DEXTROSE 5% 50 ML IV SCH ×2 (08:02→15:27)
[2020-10-21] MEDS: FOLIC ACID/VITAMIN B COMP W-C TABLET PO SCH (08:02)
[2020-10-21] MEDS: FLUCONAZOLE 200 MG/NS 100ML IV 100 MG in PREMIXED 1 EACH IV SCH (08:03)
[2020-10-21 11:47] VITALS: BP 114/63
--- NOTE | 2020-10-21 12:00 | NUR ---
DENIES PAIN OR SS OF DISTRESS. ABDOMEN REMAINS DISTENDED POST PARACENTESIS
--- NOTE | 2020-10-21 15:01 | NUR ---
NO ACUTE CHANGE FROM PREVIOUS ASSESSMENT.
--- NOTE | 2020-10-21 15:08 | NUR ---
SEEN BY CHIEF EXECUTIVE OFFICER FOR FOLLOW-UP PLAN DC IN AM
[2020-10-21 16:00] VITALS: BP 122/60
[2020-10-21 20:09] VITALS: BP 126/63
[2020-10-21] MEDS: DOCUSATE SODIUM 100 MG CAPSULE PO SCH (20:37)
[2020-10-21] MEDS: INSULIN GLARGINE,HUM 300 UNITS/3 ML CARTRIDGE SQ SCH (20:48)
--- NOTE | 2020-10-21 23:13 | NUR ---
Received pt in bed resting. Pt is alert and oriented. On RA with no s/s of respiratory distress. Denies pain. Sinus tachy on monitor at 107 bpm. No other issues or concerns at this time.
[2020-10-22 00:09] VITALS: BP 117/69
[2020-10-22] MEDS: PIPERACILLIN/TAZO 2.25 G in IV DEXTROSE 5% 50 ML IV SCH ×4 (00:12→23:32)
[2020-10-22 04:06] VITALS: BP 116/65
[2020-10-22] MEDS: PANTOPRAZOLE SODIUM 40 MG TABLET.DR PO SCH (06:01)
[2020-10-22] MEDS: BLOOD SUGAR DIAGNOSTIC 1 EACH STRIP VI SCH ×4 (06:31→20:19)
--- NOTE | 2020-10-22 06:40 | NUR ---
Pt slept throughout the night. Does not appear to be in any pain or distress. Denies SOB. Pt is on RA sating at 99%. Was kept NPO past midnight for scheduled abdominal US today. Safety and comfort provided throughout the night. Bed is locked and in lowest position. No other issues or concerns at this time. Will endorse to day shift.
[2020-10-22 06:55] LABS: BASOPHILS % (AUTO) 0.7 % (0.0-2.0); EOSINOPHILS # (AUTO) 0.1 K/uL (0.0-0.7); EOSINOPHILS % (AUTO) 1.7 % (0.0-7.0); HEMATOCRIT 24.2 % (31.2-41.9); HEMOGLOBIN 7.8 g/dL (10.9-14.3); LYMPHOCYTES # (AUTO) 0.2 K/uL (20.0-40.0); LYMPHOCYTES % (AUTO) 7.8 % (20.5-51.5); MEAN CORPUSCULAR HEMOGLOBIN 29.7 uug (24.7-32.8); MEAN CORPUSCULAR HGB CONC 32 g/dL (32.3-35.6); MEAN CORPUSCULAR VOLUME 92.6 fL (75.5-95.3); MONOCYTES # (AUTO) 0.3 K/uL (2.0-10.0); MONOCYTES % (AUTO) 10.1 % (0.0-11.0); NEUTROPHILS # (AUTO) 2.5 K/uL (1.8-8.9); NEUTROPHILS % (AUTO) 79.7 % (38.5-71.5); PLATELET COUNT (AUTO) 143 K/uL (179-408); RED BLOOD CELL COUNT(AUTO) 2.61 MIL/uL (3.63-4.92); WHITE BLOOD COUNT (AUTO) 3.1 K/uL (3.8-11.8)
[2020-10-22 07:34] LABS: ALANINE AMINOTRANSFERASE 9 U/L (14-59); ALKALINE PHOSPHATASE 261 U/L (50-136); ASPARTATE AMINOTRANSFERASE 19 U/L (15-37); BILIRUBIN,TOTAL 0.5 mg/dL (0.2-1.0); CARBON DIOXIDE 25 mmol/L (21-32); CHLORIDE 95 mmol/L (98-107); CREATININE 2.7 mg/dL (0.6-1.3); GLUCOSE 207 mg/dL (74-106); MAGNESIUM 2.1 mg/dL (1.8-2.4); PHOSPHOROUS 4.1 mg/dL (2.5-4.9); POTASSIUM 4.1 mmol/L (3.5-5.1); TOTAL PROTEIN, SERUM 6.1 g/dL (6.4-8.2); UREA NITROGEN, BLOOD 60 mg/dL (7-18)
[2020-10-22] MEDS: FLUCONAZOLE 200 MG/NS 100ML IV 100 MG in PREMIXED 1 EACH IV SCH (09:32)
[2020-10-22] MEDS: FOLIC ACID/VITAMIN B COMP W-C TABLET PO SCH (11:14)
[2020-10-22] MEDS: SPIRONOLACTONE 50 MG TABLET PO SCH (11:14)
[2020-10-22] MEDS: LACTULOSE 20 G/30 ML LIQUID UDC PO SCH (11:20)
--- NOTE | 2020-10-22 11:30 | NUR ---
ABDOMINAL ULTRASOUND DONE AT BEDSIDE. SEEN BY MAIL ORDER CLERK TOOL GRINDER OPERATOR SURFACE - SEE NOTES FOR NEW ORDERS.
--- NOTE | 2020-10-22 11:45 | NUR ---
DAILY MEDICATIONS HELD AT 0900 BUT WAS GIVEN AFTER ABDOMINAL ULTRASOUNDS. PATIENT SWALLOW PILLS WITHOUT DIFFICULTY. REFUSED LACTULOSE PO.
[2020-10-22 12:01] VITALS: BP 118/65
[2020-10-22] MEDS ORDERED: BUMETANIDE 1 MG/4 ML VIAL IV ONE (12:45)
[2020-10-22 16:39] VITALS: BP 127/74
[2020-10-22] MEDS: INSULIN REGULAR, HUMAN 300 UNIT/3 ML VIAL SQ PRN ×2 (17:02→20:20)
[2020-10-22] MEDS: DOCUSATE SODIUM 100 MG CAPSULE PO SCH (20:18)
[2020-10-22] MEDS: INSULIN GLARGINE,HUM 300 UNITS/3 ML CARTRIDGE SQ SCH (20:22)
[2020-10-22 20:49] VITALS: BP 116/63
[2020-10-22] MEDS: HEPARIN SODIUM,PORCINE 5,000 UNITS/ML VIAL SQ SCH (21:30)
[2020-10-23 01:37] VITALS: BP 110/62
[2020-10-23 05:10] VITALS: BP 113/68
[2020-10-23] MEDS: PANTOPRAZOLE SODIUM 40 MG TABLET.DR PO SCH (06:21)
[2020-10-23] MEDS: HEPARIN SODIUM,PORCINE 5,000 UNITS/ML VIAL SQ SCH ×3 (06:23→21:17)
[2020-10-23] MEDS: BLOOD SUGAR DIAGNOSTIC 1 EACH STRIP VI SCH ×4 (06:36→21:19)
--- NOTE | 2020-10-23 06:51 | NUR ---
PATIENT SLEPT INTERMITTENTLY THROUGHOUT THE NIGHT. VSS. DENIES PAIN OR SOB AT THIS TIME. SAFETY PRECAUTIONS IN PLACE. ALL NEEDS MET.
[2020-10-23] MEDS: PIPERACILLIN/TAZO 2.25 G in IV DEXTROSE 5% 50 ML IV SCH ×3 (08:41→23:59)
[2020-10-23] MEDS: SPIRONOLACTONE 50 MG TABLET PO SCH (08:49)
[2020-10-23] MEDS: FLUCONAZOLE 100 MG TABLET PO SCH (08:49)
[2020-10-23] MEDS: FOLIC ACID/VITAMIN B COMP W-C TABLET PO SCH (08:49)
[2020-10-23] MEDS: LACTULOSE 20 G/30 ML LIQUID UDC PO SCH (08:56)
--- NOTE | 2020-10-23 10:00 | NUR ---
AWAKE ALERT ORIENTED LANGUAGE BARRIER BUT ABLE TO MAKE SIMPLE NEEDS KNOWN NO S/S OF HYPO/HYPERGLYCEMIC REACTIONS REMAIN ON COVID ISOLATION AND PRECAUTION ON ROOM AIR WITH NO SOB NOT IN DISTRESS AT THIS TIME.
[2020-10-23 11:35] LABS: CARBON DIOXIDE 24 mmol/L (21-32); CHLORIDE 96 mmol/L (98-107); CREATININE 2.8 mg/dL (0.6-1.3); GLUCOSE 253 mg/dL (74-106); POTASSIUM 3.9 mmol/L (3.5-5.1); UREA NITROGEN, BLOOD 62 mg/dL (7-18)
[2020-10-23 12:10] VITALS: BP 108/63
[2020-10-23] MEDS: INSULIN REGULAR, HUMAN 300 UNIT/3 ML VIAL SQ PRN ×3 (12:20→21:18)
[2020-10-23 12:34] LABS: EOSINOPHILS # (AUTO) 0.1 K/uL (0.0-0.7); EOSINOPHILS % (AUTO) 1.9 % (0.0-7.0); HEMATOCRIT 24.6 % (31.2-41.9); HEMOGLOBIN 7.8 g/dL (10.9-14.3); LYMPHOCYTES # (AUTO) 0.2 K/uL (20.0-40.0); LYMPHOCYTES % (AUTO) 6.7 % (20.5-51.5); MEAN CORPUSCULAR HGB CONC 32 g/dL (32.3-35.6); MEAN CORPUSCULAR VOLUME 91.4 fL (75.5-95.3); MONOCYTES # (AUTO) 0.3 K/uL (2.0-10.0); MONOCYTES % (AUTO) 9.6 % (0.0-11.0); NEUTROPHILS # (AUTO) 2.1 K/uL (1.8-8.9); NEUTROPHILS % (AUTO) 80.8 % (38.5-71.5); PLATELET COUNT (AUTO) 158 K/uL (179-408); RED BLOOD CELL COUNT(AUTO) 2.69 MIL/uL (3.63-4.92); WHITE BLOOD COUNT (AUTO) 2.7 K/uL (3.8-11.8)
[2020-10-23 16:13] VITALS: BP 105/64
[2020-10-23] MEDS ORDERED: BUMETANIDE 1 MG/4 ML VIAL IV ONE (16:30)
--- NOTE | 2020-10-23 18:00 | NUR ---
ABDOMEN CONTINUES TO BE BIG WITH ULTRA SOUND SHOWING MODERATE TO LARGE ABDOMEN AND PELVIC ASCITIS BUMEX ORDERED AND GIVEN ORDERED.
--- NOTE | 2020-10-23 19:30 | NUR ---
Received patient lying in bed. AAOx4. Uruguayan speaking only. Denies any pain or SOB. O2 sat at 100% on RA. No coughing noted at this time. IV site on right wrist area intact and patent. Perma cath to right chest area. Abdomen very distended. Sinus tachy on tele at 108/min. Patient with periods of non-sustaining SVT. Informed CREDIT OFFICE MANAGER [facility] and ordered cardiology consult with Dr Wolf. COVID isolation precaution initiated. Safety measure initiated and call blair within reach. Continue to monitor.
[2020-10-23] MEDS: INSULIN GLARGINE,HUM 300 UNITS/3 ML CARTRIDGE SQ SCH (21:19)
[2020-10-23] MEDS: DOCUSATE SODIUM 100 MG CAPSULE PO SCH (21:19)
[2020-10-23 21:20] VITALS: BP 113/67
[2020-10-24 01:11] VITALS: BP 103/66
[2020-10-24] MEDS: HEPARIN SODIUM,PORCINE 5,000 UNITS/ML VIAL SQ SCH ×3 (05:58→21:04)
[2020-10-24] MEDS: PANTOPRAZOLE SODIUM 40 MG TABLET.DR PO SCH (06:01)
[2020-10-24 06:41] VITALS: BP 111/71
[2020-10-24] MEDS: BLOOD SUGAR DIAGNOSTIC 1 EACH STRIP VI SCH ×4 (06:45→21:02)
--- NOTE | 2020-10-24 06:50 | NUR ---
AAOx4. Denies any pain or SOB. No adverse reaction noted from IV ABX. Sinus tachy on tele at 105/min. No further SVT noted. COVID isolation precaution maintained. Safety measure maintained and call blair within reach.
[2020-10-24] MEDS: INSULIN REGULAR, HUMAN 300 UNIT/3 ML VIAL SQ PRN ×4 (08:32→20:56)
[2020-10-24] MEDS: PIPERACILLIN/TAZO 2.25 G in IV DEXTROSE 5% 50 ML IV SCH ×3 (08:42→23:37)
[2020-10-24] MEDS: FOLIC ACID/VITAMIN B COMP W-C TABLET PO SCH (08:53)
[2020-10-24] MEDS: FLUCONAZOLE 100 MG TABLET PO SCH (08:53)
[2020-10-24] MEDS: LACTULOSE 20 G/30 ML LIQUID UDC PO SCH (08:54)
[2020-10-24] MEDS: SPIRONOLACTONE 50 MG TABLET PO SCH (08:54)
--- NOTE | 2020-10-24 09:00 | NUR ---
PATIENT IS AWAKE ALERT AND ORIENTED SPEAKS MOSTLY BULGARIAN BUT ABLE TO MAKE SIMPLE NEEDS KNOWN BUT IS DEPENDENT FOR ALL ADL REMAIN ON COVID ISOLATION AND PRECAUTION ON ROOM AIR WITH NO SHORTNESS OF BREATH AT THIS TIME CALL LIGHTS AND PERSONAL BELONGINGS ARE WITHIN EASY REACH WILL CONTINUE TO OBSERVE..
[2020-10-24 09:11] LABS: BASOPHILS % (AUTO) 0.7 % (0.0-2.0); EOSINOPHILS # (AUTO) 0.1 K/uL (0.0-0.7); EOSINOPHILS % (AUTO) 1.6 % (0.0-7.0); HEMATOCRIT 28.2 % (31.2-41.9); HEMOGLOBIN 9.2 g/dL (10.9-14.3); LYMPHOCYTES # (AUTO) 0.3 K/uL (20.0-40.0); LYMPHOCYTES % (AUTO) 10.2 % (20.5-51.5); MEAN CORPUSCULAR HEMOGLOBIN 29.8 uug (24.7-32.8); MEAN CORPUSCULAR HGB CONC 33 g/dL (32.3-35.6); MEAN CORPUSCULAR VOLUME 91.7 fL (75.5-95.3); MONOCYTES # (AUTO) 0.3 K/uL (2.0-10.0); MONOCYTES % (AUTO) 9.1 % (0.0-11.0); NEUTROPHILS # (AUTO) 2.6 K/uL (1.8-8.9); NEUTROPHILS % (AUTO) 78.4 % (38.5-71.5); PLATELET COUNT (AUTO) 169 K/uL (179-408); RED BLOOD CELL COUNT(AUTO) 3.07 MIL/uL (3.63-4.92); WHITE BLOOD COUNT (AUTO) 3.3 K/uL (3.8-11.8)
[2020-10-24 09:43] LABS: CARBON DIOXIDE 24 mmol/L (21-32); CHLORIDE 97 mmol/L (98-107); CREATININE 2.8 mg/dL (0.6-1.3); GLUCOSE 218 mg/dL (74-106); MAGNESIUM 2.2 mg/dL (1.8-2.4); PHOSPHOROUS 4.6 mg/dL (2.5-4.9); POTASSIUM 4.6 mmol/L (3.5-5.1); UREA NITROGEN, BLOOD 69 mg/dL (7-18)
[2020-10-24 12:00] VITALS: BP 120/66
--- NOTE | 2020-10-24 13:00 | NUR ---
BLOOD PRESSURE IS 163/67 AND HEART RATE IS [address] PURI WITH NO NEW ORDERS AT THIS TIME PATIENT IS ASSYMPTOMATIC AT THIS TIME WILL CONTINUE TO OBSERVE. Addendum: 10/24/20 at 1332 by JAMIE BERNAL RN WRONG ENTRY WRONG PATIENT
--- NOTE | 2020-10-24 13:12 | NUR ---
IV SITE INFILTERATED UNABLE TO REINSERT PROVIDER NOTIFIED WITH ORDER TO INSERT A MID LINE AND NOTED RN AIX ADMINISTRATOR NOTIFIED STATED WILL CALL THE MIDLINE TEAM.
--- NOTE | 2020-10-24 15:56 | NUR ---
MID LINE INSERTED TO HER LEFT UPPER ARM GAUGE 20 AND CONTINUED ON IV ATB WITH NO ADVERSE OR ALLERGIC REACTIONS AT THIS TIME
[2020-10-24 18:00] VITALS: BP 123/61
--- NOTE | 2020-10-24 18:25 | NUR ---
Coagulation lab (PTT, INR) are need to be updated. PT is low. MOHIT Anaya will get the consent. NEGAR Miller will order Paracentesis on 10/25/2020.
[2020-10-24] MEDS ORDERED: ALBUMIN HUMAN 25% 50 ML IV ONE (19:00)
--- NOTE | 2020-10-24 19:30 | NUR ---
AAOx4. Peruvian speaking only. Denies any pain or SOB.Midline on left upper arm intact and patent. Perma cath to right chest area. Abdomen very distended. Sinus tachy on tele at 113/min. COVID isolation precaution initiated. Safety measure initiated and call blair within reach.
[2020-10-24 20:00] VITALS: BP 123/66
[2020-10-24] MEDS: DOCUSATE SODIUM 100 MG CAPSULE PO SCH (20:46)
[2020-10-24] MEDS: INSULIN GLARGINE,HUM 300 UNITS/3 ML CARTRIDGE SQ SCH (20:57)
[2020-10-25] VITALS: BP 114/47
[2020-10-25 04:00] VITALS: BP 114/55
[2020-10-25] MEDS: HEPARIN SODIUM,PORCINE 5,000 UNITS/ML VIAL SQ SCH ×3 (06:15→22:00)
[2020-10-25] MEDS: PANTOPRAZOLE SODIUM 40 MG TABLET.DR PO SCH (06:19)
--- NOTE | 2020-10-25 06:31 | NUR ---
No significant event noted throughtout the shift. Slept well last night. Denies any pain or SOB. No adverse effect noted from IV ABX. SR, Sinus tachy on tele betv 95-103/min. COVID precaution maintained. Needs attended to and met. Safety measure maintained.
[2020-10-25] MEDS: BLOOD SUGAR DIAGNOSTIC 1 EACH STRIP VI SCH ×4 (06:39→21:54)
[2020-10-25] MEDS: FOLIC ACID/VITAMIN B COMP W-C TABLET PO SCH (08:23)
[2020-10-25] MEDS: LACTULOSE 20 G/30 ML LIQUID UDC PO SCH (08:23)
[2020-10-25] MEDS: PIPERACILLIN/TAZO 2.25 G in IV DEXTROSE 5% 50 ML IV SCH (08:23)
[2020-10-25] MEDS: SPIRONOLACTONE 50 MG TABLET PO SCH (08:24)
[2020-10-25] MEDS: FLUCONAZOLE 100 MG TABLET PO SCH (08:24)
[2020-10-25] MEDS: INSULIN REGULAR, HUMAN 300 UNIT/3 ML VIAL SQ PRN ×4 (08:43→22:00)
[2020-10-25 11:10] VITALS: BP 113/59
--- NOTE | 2020-10-25 11:30 | NUR ---
DIALYSIS COMPLETED ORDERED AND 1600 REMOVED AND PATIENT TOLERATED PROCEDURE WELL. WILL CONTINUE TO OBSERVE.
--- NOTE | 2020-10-25 14:03 | NUR ---
HEPARIN DOSE DUE AT THIS TIME BUT HELD BECAUSE PATIENT IS SCHEDULED FOR PARACENTESIS THIS AFTERNOON AND JESU SANABRIA IS HERE AND AWARE AND STATED TO HOLD THIS DOSE.
[2020-10-25 15:06] VITALS: BP 118/63
[2020-10-25] MEDS: MICAFUNGIN SODIUM 100 MG in IV NORMAL SALINE 100 ML IV SCH (15:52)
--- NOTE | 2020-10-25 18:00 | NUR ---
STILL AWAITING FOR PARACENTESIS PER RADIOLOGY VANESA WILL BE HERE TO DO THE PROCEDURE WITH THE RADIOLOGIST SOON POSSIBLE.ABDOMEN REMAINS LARGE AND DISTENDED BUT NO C/O PAIN AT THIS TIME.
--- NOTE | 2020-10-25 20:00 | NUR ---
Temperature 101.8. Cooling measures initiated. Made comfortable in bed. Will notify MD to obtain order for Tylenol. Will continue to monitor.
--- NOTE | 2020-10-25 20:00 | NUR ---
Plasmanate was not given, No Paracentesis done today.
[2020-10-25 20:31] VITALS: BP 107/52
--- NOTE | 2020-10-25 21:15 | NUR ---
Tempt rechecked 101.5 at this time. Continue cooling measures. Tylenol was given one time as ordered.
[2020-10-25] MEDS: DOCUSATE SODIUM 100 MG CAPSULE PO SCH (21:50)
[2020-10-25] MEDS: INSULIN GLARGINE,HUM 300 UNITS/3 ML CARTRIDGE SQ SCH (21:58)
--- NOTE | 2020-10-25 22:00 | NUR ---
Heparin on hold due to planned paracentesis.
[2020-10-26] MEDS ORDERED: ACETAMINOPHEN 325 MG TABLET-SA PATIENTS-PAIN ONLY PO PRN
--- NOTE | 2020-10-26 | NUR ---
Temp down to 100. Continue cooling measures.
[2020-10-26 00:14] VITALS: BP 94/38
[2020-10-26 04:00] VITALS: BP 112/53
--- NOTE | 2020-10-26 05:47 | NUR ---
Temp down to 98.6.
[2020-10-26] MEDS: HEPARIN SODIUM,PORCINE 5,000 UNITS/ML VIAL SQ SCH ×3 (06:00→21:01)
[2020-10-26] MEDS: PANTOPRAZOLE SODIUM 40 MG TABLET.DR PO SCH (06:24)
[2020-10-26] MEDS: BLOOD SUGAR DIAGNOSTIC 1 EACH STRIP VI SCH ×4 (06:30→20:51)
[2020-10-26 07:49] LABS: HEMATOCRIT 23.8 % (31.2-41.9); HEMOGLOBIN 7.8 g/dL (10.9-14.3); LYMPHOCYTES # (AUTO) 0.3 K/uL (20.0-40.0); LYMPHOCYTES % (AUTO) 7.6 % (20.5-51.5); MEAN CORPUSCULAR HGB CONC 33 g/dL (32.3-35.6); MEAN CORPUSCULAR VOLUME 91.7 fL (75.5-95.3); MONOCYTES # (AUTO) 0.4 K/uL (2.0-10.0); MONOCYTES % (AUTO) 11.6 % (0.0-11.0); NEUTROPHILS # (AUTO) 2.7 K/uL (1.8-8.9); NEUTROPHILS % (AUTO) 78.8 % (38.5-71.5); PLATELET COUNT (AUTO) 160 K/uL (179-408); RED BLOOD CELL COUNT(AUTO) 2.59 MIL/uL (3.63-4.92); WHITE BLOOD COUNT (AUTO) 3.4 K/uL (3.8-11.8)
[2020-10-26] MEDS: LACTULOSE 20 G/30 ML LIQUID UDC PO SCH (08:30)
[2020-10-26] MEDS: FOLIC ACID/VITAMIN B COMP W-C TABLET PO SCH (08:31)
[2020-10-26] MEDS: SPIRONOLACTONE 50 MG TABLET PO SCH (08:31)
[2020-10-26] MEDS: NEPRO (VANILLA) 237 ML CAN PO SCH (08:31)
--- NOTE | 2020-10-26 08:45 | NUR ---
PATIENT SEEN BY JAREK HECTOR PROVIDER WITH NEW ORDERS AND NOTED.
[2020-10-26] MEDS: PROPRANOLOL HCL 20 MG TABLET PO SCH ×2 (09:07→21:00)
--- NOTE | 2020-10-26 10:56 | NUR ---
CALL RECEIVED FROM DR MC RE ORDER FOR GI CONSULT SPOKE WITH HIM WITH NO NEW ORDERS AT THIS TIME
--- NOTE | 2020-10-26 10:58 | NUR ---
PATIENT HAS A LOW GRDE FEVER OF 99.2 COOLING MEASURES IN PROGRESS AT THIS TIME
[2020-10-26 11:35] VITALS: BP 106/56
[2020-10-26] MEDS: INSULIN REGULAR, HUMAN 300 UNIT/3 ML VIAL SQ PRN ×3 (11:46→20:50)
--- NOTE | 2020-10-26 14:11 | NUR ---
PER THE ULTRA SOUND TECH PARACENTESIS WILL BE PERFORMED THIS AFTERNOON WILL NOTIFY ME THE EXACT TIME HEPARIN SUB Q HELD UNTIL AFTER THE PROCEDURE
[2020-10-26] MEDS: MICAFUNGIN SODIUM 100 MG in IV NORMAL SALINE 100 ML IV SCH (14:16)
--- NOTE | 2020-10-26 15:00 | NUR ---
PARACENTESIS COMPLETED ORDERED AND 7000 ML REMOVED.PATIENT TOLERATED PROCEDURE WELL
[2020-10-26 16:00] VITALS: BP 97/47
[2020-10-26] MEDS ORDERED: ALBUMIN HUMAN 25% 50 ML IV ONE (16:15)
--- NOTE | 2020-10-26 18:00 | NUR ---
ALBUMIN GIVEN ORDERED BLOOD PRESSURE AT THIS TIME IS 97/47 NOTED SOME LEAK FROM THE PARACENTESIS SITE CHANGED AND WILL CONTINUE TO OBSERVE.
[2020-10-26 20:00] VITALS: BP 97/39
[2020-10-26] MEDS: DOCUSATE SODIUM 100 MG CAPSULE PO SCH (20:47)
[2020-10-26] MEDS: INSULIN GLARGINE,HUM 300 UNITS/3 ML CARTRIDGE SQ SCH (20:49)
[2020-10-27] VITALS: BP 92/37
--- NOTE | 2020-10-27 03:22 | NUR ---
pt rested well in between care; systolic blood pressure in the 90s; will observe closely; otherwise pt ate snacks last night and is not in acute distress; continue to monitor.
[2020-10-27 04:00] VITALS: BP 104/43
[2020-10-27] MEDS: PANTOPRAZOLE SODIUM 40 MG TABLET.DR PO SCH (05:35)
[2020-10-27] MEDS: HEPARIN SODIUM,PORCINE 5,000 UNITS/ML VIAL SQ SCH ×2 (05:35→14:51)
[2020-10-27] MEDS: BLOOD SUGAR DIAGNOSTIC 1 EACH STRIP VI SCH ×3 (06:26→16:51)
--- NOTE | 2020-10-27 07:10 | NUR ---
Received patient in bed, awake and alert, able to make needs known, cooperative with care. No s/s of respiratory distress. No chest pain reported at this moment. Patient is with L arm midline IV access, intact and patent. With discharge plan today but not yet finalized. Will continue to monitor and wait for DC updates.
[2020-10-27] MEDS: SPIRONOLACTONE 50 MG TABLET PO SCH (08:35)
[2020-10-27] MEDS: LACTULOSE 20 G/30 ML LIQUID UDC PO SCH ×3 (08:38→09:00)
[2020-10-27] MEDS: PROPRANOLOL HCL 20 MG TABLET PO SCH (08:42)
[2020-10-27] MEDS: FOLIC ACID/VITAMIN B COMP W-C TABLET PO SCH (08:42)
[2020-10-27 08:43] LABS: EOSINOPHILS # (AUTO) 0.1 K/uL (0.0-0.7); HEMATOCRIT 27.4 % (31.2-41.9); HEMOGLOBIN 8.8 g/dL (10.9-14.3); LYMPHOCYTES # (AUTO) 0.3 K/uL (20.0-40.0); MEAN CORPUSCULAR HEMOGLOBIN 29.7 uug (24.7-32.8); MEAN CORPUSCULAR HGB CONC 32 g/dL (32.3-35.6); MEAN CORPUSCULAR VOLUME 92.1 fL (75.5-95.3); MONOCYTES # (AUTO) 0.4 K/uL (2.0-10.0); MONOCYTES % (AUTO) 13.9 % (0.0-11.0); NEUTROPHILS % (AUTO) 72.1 % (38.5-71.5); PLATELET COUNT (AUTO) 176 K/uL (179-408); RED BLOOD CELL COUNT(AUTO) 2.98 MIL/uL (3.63-4.92); WHITE BLOOD COUNT (AUTO) 2.7 K/uL (3.8-11.8)
[2020-10-27] MEDS: NEPRO (VANILLA) 237 ML CAN PO SCH (08:43)
[2020-10-27 09:02] LABS: CARBON DIOXIDE 25 mmol/L (21-32); CHLORIDE 101 mmol/L (98-107); CREATININE 2.3 mg/dL (0.6-1.3); GLUCOSE 145 mg/dL (74-106); POTASSIUM 3.6 mmol/L (3.5-5.1); UREA NITROGEN, BLOOD 61 mg/dL (7-18)
[2020-10-27] MEDS: INSULIN REGULAR, HUMAN 300 UNIT/3 ML VIAL SQ PRN (11:51)
[2020-10-27 12:00] VITALS: BP 101/55
[2020-10-27] MEDS: MICAFUNGIN SODIUM 100 MG in IV NORMAL SALINE 100 ML IV SCH (14:51)
[2020-10-27 16:00] VITALS: BP 112/60
--- NOTE | 2020-10-27 21:30 | NUR ---
pt is discharged in improved condition; day shift RN gave report to THR; report given to ambulance personnel;
== END 2020-10-27 21:10 | DRG 432 ==
LOC: ER 18:36 → TELE3 10-20 06:23 → TRANSITION 10-20 06:50 → TELE3 10-20 10:51
PROVIDERS: ADMIT Nurse Practitioner Acute Care; ATTEND Nurse Practitioner Acute Care
PROC: 0W9G3ZZ Drainage of Peritoneal Cavity, Percutaneous Approach (ICD-10-PCS; principal; 2020-10-20)
PROC: 05HY33Z Insertion of Infusion Device into Upper Vein, Percutaneous Approach (ICD-10-PCS; 2020-10-24)
PROC: 5A1D70Z Performance of Urinary Filtration, Intermittent, Less than 6 Hours Per Day (ICD-10-PCS; 2020-10-25)
PROC: 0W9G3ZZ Drainage of Peritoneal Cavity, Percutaneous Approach (ICD-10-PCS; 2020-10-26)
DX: K74.60 Unspecified cirrhosis of liver (principal); N18.6 End stage renal disease; U07.1 COVID-19; R18.8 Other ascites; D61.818 Other pancytopenia; K76.6 Portal hypertension; E44.0 Moderate protein-calorie malnutrition; E87.1 Hypo-osmolality and hyponatremia; N17.9 Acute kidney failure, unspecified; B37.49 Other urogenital candidiasis; E11.22 Type 2 diabetes mellitus with diabetic chronic kidney disease; D63.8 Anemia in other chronic diseases classified elsewhere; Z99.2 Dependence on renal dialysis; I25.2 Old myocardial infarction; Z79.4 Long term (current) use of insulin; E87.70 Fluid overload, unspecified; K72.10 Chronic hepatic failure without coma; E88.09 Other disorders of plasma-protein metabolism, not elsewhere classified; Z68.26 Body mass index [BMI] 26.0-26.9, adult
CPT/HCPCS: 36415; 70030-TC; 71045; 76705; 82105; 82378; 83605; 83615; 83690; 83735; 83986; 84100; 85025; 85730; 87040; 87070; 87077; 87086; 87205; 93005; A4663; G0378; J1450; J1644; J1815; J2248; J2270; J2405; J2543; J3490; J7050; J7060; P9047; U0003

== ENCOUNTER 2020-11-07 13:15 | Inpatient (IN) | payer OTHER ==
[~2020-11-07] VITALS: Ht 157.5 cm; Wt 55.8 kg
[~2020-11-07 13:15] MED LIST changes: +INSU100V11 SUBCUT; -INSU200I SQ; -LACT10SO PO; +LACT10SO3 PO; +ONDANSETRON 4 MG/2 ML VIAL IV ONE; +VIT1TABL46 PO
[2020-11-07] MEDS ORDERED: INSU100V11 SQ (13:46)
[2020-11-07] MEDS ORDERED: VIT1TABL46 PO (13:46)
[2020-11-07 13:54] LABS: BASOPHILS % (AUTO) 0.4 % (0.0-2.0); EOSINOPHILS # (AUTO) 0.1 K/uL (0.0-0.7); EOSINOPHILS % (AUTO) 1.5 % (0.0-7.0); HEMATOCRIT 31.3 % (31.2-41.9); HEMOGLOBIN 10.2 g/dL (10.9-14.3); LYMPHOCYTES # (AUTO) 0.4 K/uL (20.0-40.0); LYMPHOCYTES % (AUTO) 9.5 % (20.5-51.5); MEAN CORPUSCULAR HEMOGLOBIN 30.2 uug (24.7-32.8); MEAN CORPUSCULAR HGB CONC 33 g/dL (32.3-35.6); MEAN CORPUSCULAR VOLUME 92.4 fL (75.5-95.3); MONOCYTES # (AUTO) 0.3 K/uL (2.0-10.0); MONOCYTES % (AUTO) 8.1 % (0.0-11.0); NEUTROPHILS % (AUTO) 80.5 % (38.5-71.5); PLATELET COUNT (AUTO) 163 K/uL (179-408); RED BLOOD CELL COUNT(AUTO) 3.39 MIL/uL (3.63-4.92); WHITE BLOOD COUNT (AUTO) 3.8 K/uL (3.8-11.8)
[2020-11-07 14:05] LABS: CARBON DIOXIDE 28 mmol/L (21-32); CHLORIDE 96 mmol/L (98-107); CREATININE 2.1 mg/dL (0.6-1.3); GLUCOSE 208 mg/dL (74-106); POTASSIUM 3.9 mmol/L (3.5-5.1); UREA NITROGEN, BLOOD 45 mg/dL (7-18)
[2020-11-07 14:08] LABS: PHOSPHOROUS 3.8 mg/dL (2.5-4.9)
[2020-11-07 14:11] LABS: ALANINE AMINOTRANSFERASE 9 U/L (14-59); ALKALINE PHOSPHATASE 301 U/L (50-136); ASPARTATE AMINOTRANSFERASE 22 U/L (15-37); BILIRUBIN,DIRECT 0.2 mg/dL (0.0-0.2); BILIRUBIN,TOTAL 0.5 mg/dL (0.2-1.0); LIPASE 204 U/L (73-393); TOTAL PROTEIN, SERUM 7.7 g/dL (6.4-8.2)
[2020-11-07] MEDS ORDERED: Z GUARD REMEDY PASTE 57 GM TUBE TOP PRN (15:15)
[2020-11-07] MEDS ORDERED: ACETAMINOPHEN 325 MG TABLET PO PRN (15:15)
[2020-11-07] MEDS ORDERED: MAGNESIUM HYDROXIDE 30 ML LIQUID UDC PO PRN (15:15)
[2020-11-07] MEDS ORDERED: HYDROCODONE/APAP 5-325MG TABLET PO PRN (15:15)
[2020-11-07] MEDS ORDERED: ONDANSETRON 4 MG/2 ML VIAL IV PRN (15:15)
[2020-11-07] MEDS ORDERED: ONDANSETRON HCL 4 MG TABLET PO PRN (15:15)
[2020-11-07] MEDS ORDERED: BISACODYL 10 MG SUPP.RECT RC PRN (15:15)
[2020-11-07] MEDS ORDERED: MORPHINE SULFATE 2 MG/1 ML DISP.SYRIN ONE (16:00)
[2020-11-07] MEDS ORDERED: MORPHINE SULFATE 2 MG/1 ML DISP.SYRIN IV ONE (16:00)
--- NOTE | 2020-11-07 16:56 | NUR ---
PT RESTING, NO SIGN OF DISTRESS, WILL CONTINUE TO MONITOR THE PT.
--- NOTE | 2020-11-07 17:29 | NUR ---
PERINEAL HYGIENE PROVIDED FOR PT.
--- NOTE | 2020-11-07 19:57 | NUR ---
Patient noted resting in bed, no signs of acute distress noted
[2020-11-07] MEDS: DOCUSATE SODIUM 100 MG CAPSULE PO SCH (21:20)
--- NOTE | 2020-11-07 22:57 | NUR ---
Pt. admitted to [facility], under care of EMERGENCY PHYSICIAN Angy Miller Belongs List completed and all belongings sent
--- NOTE | 2020-11-07 23:00 | NUR ---
ADMITTED, FEMALE CHIEF COMPLAINED OF ABDOMINAL PAIN. ABDOMEN DISTENDED BUT NO COMPLAINED OF PAIN, ORIENTED TO ROOM, ICE CHIPS GIVEN. CONSENT FOR PARACENTESIS DONE , REPOSITION FOR COMFORT.. CALL LIGHT WITH IN REACH
[2020-11-08 04:00] VITALS: BP 117/62
[2020-11-08 06:43] LABS: BASOPHILS % (AUTO) 0.5 % (0.0-2.0); EOSINOPHILS # (AUTO) 0.1 K/uL (0.0-0.7); EOSINOPHILS % (AUTO) 1.8 % (0.0-7.0); HEMATOCRIT 26.1 % (31.2-41.9); HEMOGLOBIN 8.7 g/dL (10.9-14.3); LYMPHOCYTES # (AUTO) 0.3 K/uL (20.0-40.0); LYMPHOCYTES % (AUTO) 9.5 % (20.5-51.5); MEAN CORPUSCULAR HEMOGLOBIN 30.1 uug (24.7-32.8); MEAN CORPUSCULAR HGB CONC 33 g/dL (32.3-35.6); MEAN CORPUSCULAR VOLUME 90.9 fL (75.5-95.3); MONOCYTES # (AUTO) 0.3 K/uL (2.0-10.0); MONOCYTES % (AUTO) 9.4 % (0.0-11.0); NEUTROPHILS # (AUTO) 2.6 K/uL (1.8-8.9); NEUTROPHILS % (AUTO) 78.8 % (38.5-71.5); PLATELET COUNT (AUTO) 152 K/uL (179-408); RED BLOOD CELL COUNT(AUTO) 2.87 MIL/uL (3.63-4.92); WHITE BLOOD COUNT (AUTO) 3.3 K/uL (3.8-11.8)
[2020-11-08 07:10] LABS: ALANINE AMINOTRANSFERASE 9 U/L (14-59); ALKALINE PHOSPHATASE 242 U/L (50-136); ASPARTATE AMINOTRANSFERASE 29 U/L (15-37); BILIRUBIN,TOTAL 0.5 mg/dL (0.2-1.0); CARBON DIOXIDE 27 mmol/L (21-32); CHLORIDE 98 mmol/L (98-107); CREATININE 2.2 mg/dL (0.6-1.3); GLUCOSE 162 mg/dL (74-106); MAGNESIUM 1.8 mg/dL (1.8-2.4); PHOSPHOROUS 4.8 mg/dL (2.5-4.9); POTASSIUM 4.3 mmol/L (3.5-5.1); TOTAL PROTEIN, SERUM 6.9 g/dL (6.4-8.2); UREA NITROGEN, BLOOD 49 mg/dL (7-18)
[2020-11-08] MEDS: LACTULOSE 20 G/30 ML LIQUID UDC PO SCH (09:00)
[2020-11-08] MEDS: MIDODRINE HCL 5 MG TABLET PO SCH ×3 (09:00→17:00)
[2020-11-08] MEDS ORDERED: Medication Not On Formulary EA (Vit B Cmplx 3/Fa/Vit C/Biotin (Rena-Vite Rx Tablet) 1 EA PO SCH (09:00)
[2020-11-08] MEDS ORDERED: PANTOPRAZOLE SODIUM 40 MG VIAL IV SCH (09:00)
[2020-11-08] MEDS: PANTOPRAZOLE SODIUM 40 MG TABLET.DR PO SCH (09:41)
[2020-11-08] MEDS: FOLIC ACID/VITAMIN B COMP W-C TABLET PO SCH (09:41)
[2020-11-08 11:55] VITALS: BP 121/69
[2020-11-08 16:35] VITALS: BP 107/62
[2020-11-08] MEDS ORDERED: DEXTROSE 50% 50 ML DISP.SYRIN IV PRN (19:45)
[2020-11-08 20:12] VITALS: BP 122/66
[2020-11-08] MEDS: DOCUSATE SODIUM 100 MG CAPSULE PO SCH (20:50)
[2020-11-08] MEDS: BLOOD SUGAR DIAGNOSTIC 1 EACH STRIP VI SCH (20:50)
[2020-11-08] MEDS: INSULIN REGULAR, HUMAN 300 UNIT/3 ML VIAL SQ PRN (20:51)
--- NOTE | 2020-11-08 23:18 | NUR ---
RECEIVED REPORT FOR CONTINUATION OF CARE.
[2020-11-09 04:15] VITALS: BP 110/66
[2020-11-09 06:42] LABS: BASOPHILS % (AUTO) 0.8 % (0.0-2.0); EOSINOPHILS # (AUTO) 0.1 K/uL (0.0-0.7); EOSINOPHILS % (AUTO) 1.8 % (0.0-7.0); HEMATOCRIT 26.6 % (31.2-41.9); HEMOGLOBIN 8.7 g/dL (10.9-14.3); LYMPHOCYTES # (AUTO) 0.4 K/uL (20.0-40.0); MEAN CORPUSCULAR HEMOGLOBIN 30.2 uug (24.7-32.8); MEAN CORPUSCULAR HGB CONC 33 g/dL (32.3-35.6); MEAN CORPUSCULAR VOLUME 92.5 fL (75.5-95.3); MONOCYTES # (AUTO) 0.3 K/uL (2.0-10.0); MONOCYTES % (AUTO) 8.9 % (0.0-11.0); NEUTROPHILS # (AUTO) 2.4 K/uL (1.8-8.9); NEUTROPHILS % (AUTO) 76.5 % (38.5-71.5); PLATELET COUNT (AUTO) 142 K/uL (179-408); RED BLOOD CELL COUNT(AUTO) 2.87 MIL/uL (3.63-4.92); WHITE BLOOD COUNT (AUTO) 3.1 K/uL (3.8-11.8)
[2020-11-09 07:06] LABS: CARBON DIOXIDE 30 mmol/L (21-32); CHLORIDE 99 mmol/L (98-107); CREATININE 2.1 mg/dL (0.6-1.3); GLUCOSE 140 mg/dL (74-106); PHOSPHOROUS 4.6 mg/dL (2.5-4.9); POTASSIUM 4.5 mmol/L (3.5-5.1); UREA NITROGEN, BLOOD 43 mg/dL (7-18)
--- NOTE | 2020-11-09 08:30 | NUR ---
Received patient in bed sound asleep. Breathing is even and unlabored on room air. No facial grimacing or any pain and discomfort. P.t will be seen by MD today and scheduled for paracentesis. Call light is within reach.
[2020-11-09] MEDS: FOLIC ACID/VITAMIN B COMP W-C TABLET PO SCH (10:24)
[2020-11-09] MEDS: PANTOPRAZOLE SODIUM 40 MG TABLET.DR PO SCH (10:24)
[2020-11-09] MEDS: LACTULOSE 20 G/30 ML LIQUID UDC PO SCH (10:34)
[2020-11-09] MEDS: MIDODRINE HCL 5 MG TABLET PO SCH ×3 (10:36→17:44)
[2020-11-09] MEDS: BLOOD SUGAR DIAGNOSTIC 1 EACH STRIP VI SCH ×3 (12:38→20:12)
[2020-11-09] MEDS: INSULIN REGULAR, HUMAN 300 UNIT/3 ML VIAL SQ PRN ×3 (12:39→20:15)
[2020-11-09 12:44] VITALS: BP 109/51
[2020-11-09 16:00] VITALS: BP 121/64
--- NOTE | 2020-11-09 17:00 | NUR ---
P.t in in bed alert and awake. Denies any pain and discomfort. P.t just finished paracentesis and drawn out 6.3 liters. MRSA swab is also done and sent to lab. P.t is now allowed to eat P.O, tolerated well. Vitals signs are WNL and meds rendered. All needs are attended. Call light within reach.
--- NOTE | 2020-11-09 19:30 | NUR ---
Pt received resting in bed. Denies pain or SOB. No distress noted. On RA sating at 100%. Denies abdominal pain or tenderness. Bed is locked and in lowest position, bed alarm on. Call light is within reach. No other issues or concerns at this time.
[2020-11-09 20:00] VITALS: BP 139/63
[2020-11-09] MEDS: DOCUSATE SODIUM 100 MG CAPSULE PO SCH (20:07)
[2020-11-10 04:00] VITALS: BP 111/54
[2020-11-10] MEDS: BLOOD SUGAR DIAGNOSTIC 1 EACH STRIP VI SCH ×3 (06:59→17:30)
[2020-11-10] MEDS: LACTULOSE 20 G/30 ML LIQUID UDC PO SCH (09:22)
[2020-11-10] MEDS: PANTOPRAZOLE SODIUM 40 MG TABLET.DR PO SCH (09:22)
[2020-11-10] MEDS: FOLIC ACID/VITAMIN B COMP W-C TABLET PO SCH (09:22)
[2020-11-10] MEDS: MIDODRINE HCL 5 MG TABLET PO SCH ×3 (09:41→17:00)
[2020-11-10 12:03] VITALS: BP 114/62
[2020-11-10] MEDS: INSULIN REGULAR, HUMAN 300 UNIT/3 ML VIAL SQ PRN ×2 (12:50→17:55)
[2020-11-10 16:00] VITALS: BP 134/61
[2020-11-10 17:00] VITALS: BP 134/61
--- NOTE | 2020-11-10 18:17 | NUR ---
patient have dialysis this morning net output 1.1 L, this was discharged to [facility] report given to RN, keke trevino on ambulance on stable condition. all paperwork signed and in chart with copy given to the patient. all medication given as ordered. ID band and IV removed. discharged teaching completed
== END 2020-11-10 18:00 | DRG 432 ==
LOC: ER 13:17 → MEDSURG3 21:46
PROVIDERS: ADMIT Internal Medicine; ATTEND Internal Medicine
PROC: 5A1D70Z Performance of Urinary Filtration, Intermittent, Less than 6 Hours Per Day (ICD-10-PCS; 2020-11-08)
PROC: 0W9G3ZZ Drainage of Peritoneal Cavity, Percutaneous Approach (ICD-10-PCS; principal; 2020-11-09)
DX: K74.69 Other cirrhosis of liver (principal); N18.6 End stage renal disease; E43 Unspecified severe protein-calorie malnutrition; R18.8 Other ascites; D61.818 Other pancytopenia; D68.69 Other thrombophilia; K76.6 Portal hypertension; E11.22 Type 2 diabetes mellitus with diabetic chronic kidney disease; Z99.2 Dependence on renal dialysis; Z79.4 Long term (current) use of insulin; Z86.718 Personal history of other venous thrombosis and embolism; I95.89 Other hypotension; K72.10 Chronic hepatic failure without coma; K56.41 Fecal impaction; Z20.822 Contact with and (suspected) exposure to COVID-19; Z95.828 Presence of other vascular implants and grafts; Z68.22 Body mass index [BMI] 22.0-22.9, adult
CPT/HCPCS: 36415; 71045; 74018; 83690; 83735; 84100; 85025; 85730; 90937; 93005; A4663; G0378; J1815; J2270; J2405; J7030

== ENCOUNTER 2021-08-10 17:34 | Inpatient (IN) | payer OTHER ==
[~2021-08-10] VITALS: Ht 157.5 cm; Wt 58.5 kg
[~2021-08-10 17:34] MED LIST changes: +INSU100V11 SQ; -ONDANSETRON 4 MG/2 ML VIAL IV ONE
[2021-08-10] MEDS ORDERED: FOLI0.8T23 PO (18:25)
[2021-08-10] MEDS ORDERED: INSU3INS6 SQ (18:25)
[2021-08-10] MEDS ORDERED: CHOL10005 PO (18:25)
[2021-08-10 19:15] LABS: HEMATOCRIT 26.5 % (31.2-41.9); MEAN CORPUSCULAR HEMOGLOBIN 31.2 uug (24.7-32.8); MEAN CORPUSCULAR VOLUME 91.8 fL (75.5-95.3); PLATELET COUNT (AUTO) 149 K/uL (179-408)
[2021-08-10 19:19] LABS: CARBON DIOXIDE 23 mmol/L (21-32); CHLORIDE 109 mmol/L (98-107); CREATININE 1.1 mg/dL (0.6-1.3); GLUCOSE 192 mg/dL (74-106); POTASSIUM 4.9 mmol/L (3.5-5.1); UREA NITROGEN, BLOOD 35 mg/dL (7-18)
[2021-08-10 19:22] LABS: MAGNESIUM 2.1 mg/dL (1.8-2.4); PHOSPHOROUS 2.7 mg/dL (2.5-4.9)
[2021-08-10 19:31] LABS: ALANINE AMINOTRANSFERASE 8 U/L (14-59); ALKALINE PHOSPHATASE 196 U/L (50-136); ASPARTATE AMINOTRANSFERASE 16 U/L (15-37); BILIRUBIN,DIRECT 0.1 mg/dL (0.0-0.2); BILIRUBIN,TOTAL 0.3 mg/dL (0.2-1.0); TOTAL PROTEIN, SERUM 7.4 g/dL (6.4-8.2)
[2021-08-10 19:37] LABS: EOSINOPHILS % (MANUAL) 2 % (0-8); LYMPHOCYTES % (MANUAL) 13 % (20-40); MONOCYTES % (MANUAL) 8 % (2-10); NEUTROPHILS % (MANUAL) 77 % (42-75)
[2021-08-10] MEDS ORDERED: ACETAMINOPHEN 325 MG TABLET PO PRN (20:00)
[2021-08-10] MEDS ORDERED: Z GUARD REMEDY PASTE 57 GM TUBE TOP PRN (20:00)
[2021-08-10] MEDS ORDERED: ONDANSETRON 4 MG/2 ML VIAL IV PRN (20:00)
[2021-08-10] MEDS ORDERED: LACTULOSE 20 G/30 ML LIQUID UDC PO ONE (20:00)
[2021-08-10] MEDS ORDERED: LACTULOSE 20 G/30 ML LIQUID UDC ONE (20:22)
--- NOTE | 2021-08-10 21:22 | NUR ---
Gave report to Vijaya RUEDA
--- NOTE | 2021-08-10 22:15 | NUR ---
RECEIVED PT FROM ER VIA NATALYA.UNDER THE CARE OF ELIZABETH BILLS. DX: HD CATH REMOVAL. PT IN NO ACUTE DISTRESS. IV INTACT.ADMISSION PROCESS AND CARE PLAN INITIATED. PENITENTIARY ASSESSMENT DONE. BELONGING LIST DONE. SAFETY AND COMFORT PROVIDED. WILL CONTINUE TO MONITOR.
[2021-08-10 22:30] VITALS: BP 136/73
[2021-08-11 04:00] VITALS: BP 130/71
--- NOTE | 2021-08-11 05:56 | NUR ---
PT SLEPT INTERMITTENTLY. PT IN NO ACUTE DISTRESS. IV INTACT. SAFETY AND COMFORT PROVIDED. PT STABLE.WILL ENDORSE FOR CONTINUITY OF CARE.
[2021-08-11 06:50] LABS: HEMATOCRIT 25.2 % (31.2-41.9); MEAN CORPUSCULAR HEMOGLOBIN 31.2 uug (24.7-32.8); MEAN CORPUSCULAR VOLUME 91.2 fL (75.5-95.3); PLATELET COUNT (AUTO) 137 K/uL (179-408)
[2021-08-11 07:11] LABS: MAGNESIUM 2.2 mg/dL (1.8-2.4); PHOSPHOROUS 2.6 mg/dL (2.5-4.9); POTASSIUM 4.5 mmol/L (3.5-5.1)
[2021-08-11] MEDS ORDERED: FILGRASTIM 300 MCG/ML VIAL SUBCUT ONE (09:45)
[2021-08-11] MEDS ORDERED: TBO-FILGRASTIM 300 MCG/0.5 ML SYRINGE SQ ONE (11:00)
[2021-08-11 11:49] VITALS: BP 123/72
[2021-08-11 16:04] VITALS: BP 128/63
--- NOTE | 2021-08-11 17:58 | NUR ---
attempted to call dpoa re: consent for permacath removal scheduled for 08/12, no answer, message was left, pending call back.
--- NOTE | 2021-08-11 19:30 | NUR ---
RECEIVED PT AWAKE,ALERT AND ORIENTEDX3.PT ON ROOM AIR. PT IN NO ACUTE DISTRESS. SAFETY AND COMFORT PROVIDED. WILL CONTINUE TO MONITOR. NOTIFY DR. BOWMAN FOR MEDICATION RECONCILIATION OF THE PT.
[2021-08-11 20:15] VITALS: BP 127/54
[2021-08-12 04:15] VITALS: BP 127/54
--- NOTE | 2021-08-12 06:12 | NUR ---
PT SLEPT INTERMITTENTLY. PT IN NO ACUTE DISTRESS.PT STABLE. IV INTACT. PREOP CHECKLIST DONE. PT ON ROOM AIR. PRESCRIBED MEDICATION GIVEN AND PT TOLERATED IT WELL. SAFETY AND COMFORT PROVIDED. WILL ENDORSE TO INCOMING NURSE FOR CONTINUITY OF CARE.
[2021-08-12] MEDS ORDERED: BISACODYL 10 MG SUPP.RECT RC PRN (08:15)
[2021-08-12] MEDS ORDERED: Medication Not On Formulary EA (Vit B Cmplx 3/Fa/Vit C/Biotin (Rena-Vite Rx Tablet) 1 EA PO SCH (09:00)
[2021-08-12 09:17] LABS: HEMATOCRIT 26.3 % (31.2-41.9); MEAN CORPUSCULAR HEMOGLOBIN 30.9 uug (24.7-32.8); MEAN CORPUSCULAR VOLUME 92.2 fL (75.5-95.3); PLATELET COUNT (AUTO) 137 K/uL (179-408)
[2021-08-12 09:28] LABS: CREATININE 1.1 mg/dL (0.6-1.3); MAGNESIUM 2.2 mg/dL (1.8-2.4); PHOSPHOROUS 2.5 mg/dL (2.5-4.9)
[2021-08-12] MEDS: PANTOPRAZOLE SODIUM 40 MG TABLET.DR PO SCH (09:44)
[2021-08-12] MEDS: FOLIC ACID/VITAMIN B COMP W-C TABLET PO SCH (09:45)
[2021-08-12] MEDS: LACTULOSE 20 G/30 ML LIQUID UDC PO SCH (09:45)
[2021-08-12 12:16] VITALS: BP 132/62
[2021-08-12 16:27] VITALS: BP 128/65
[2021-08-12] MEDS ORDERED: ALBUMIN HUMAN 25% 50 ML IV ONE (18:00)
[2021-08-12 20:24] VITALS: BP 111/50
[2021-08-12] MEDS ORDERED: DEXTROSE 50% 50 ML DISP.SYRIN IV PRN (20:45)
[2021-08-12] MEDS ORDERED: INSULIN GLARGINE,HUM 300 UNITS/3 ML CARTRIDGE SQ SCH (21:00)
[2021-08-12] MEDS ORDERED: DOCUSATE SODIUM 100 MG CAPSULE PO SCH (21:00)
[2021-08-12] MEDS: BLOOD SUGAR DIAGNOSTIC 1 EACH STRIP VI SCH (21:18)
[2021-08-12] MEDS: INSULIN REGULAR, HUMAN 300 UNIT/3 ML VIAL SQ PRN (21:19)
[2021-08-13 04:24] VITALS: BP 100/52
[2021-08-13] MEDS: BLOOD SUGAR DIAGNOSTIC 1 EACH STRIP VI SCH ×2 (06:21→11:56)
[2021-08-13 06:29] LABS: BAND % (MANUAL) 6 % (0-10); LYMPHOCYTES % (MANUAL) 6 % (20-40); METAMYELOCYTES % 2 % (0-1); MONOCYTES % (MANUAL) 8 % (2-10); NEUTROPHILS % (MANUAL) 78 % (42-75)
[2021-08-13] MEDS: FOLIC ACID/VITAMIN B COMP W-C TABLET PO SCH (09:00)
[2021-08-13] MEDS: PANTOPRAZOLE SODIUM 40 MG TABLET.DR PO SCH (09:00)
[2021-08-13] MEDS: LACTULOSE 20 G/30 ML LIQUID UDC PO SCH (09:01)
--- NOTE | 2021-08-13 09:25 | NUR ---
Permacath removed at bedside by Dr. Richardson. patient is stable at this time. Area was cleaned with n/s pat dry and dry dressing applied.
[2021-08-13 11:01] VITALS: BP 106/59
[2021-08-13] MEDS: INSULIN REGULAR, HUMAN 300 UNIT/3 ML VIAL SQ PRN (11:57)
--- NOTE | 2021-08-13 15:00 | NUR ---
patient with new order for discharge, called [facility] and gave report to Leonard RN all questions answered.
[2021-08-13 15:05] VITALS: BP 101/65
--- NOTE | 2021-08-13 16:26 | NUR ---
patient being discharged. all discharge paperwork reviewed with patient and with [facility]. inventory of belongings completed. all paperwork and belongings given to oxide furnace tender from [facility] ambulance, report given to [facility] oxide furnace tender. iv removed minimal bleeding noted, dressing placed. Body assessment completed all pictures in chart. patient stable at moment of d/c v/s :wnl at time of d/c afebrile.
== END 2021-08-13 16:35 | DRG 432 ==
LOC: ER 17:36 → TELE3 21:58 → MEDSURG3 22:02
PROVIDERS: ADMIT Internal Medicine; ATTEND Internal Medicine
PROC: 0W9G3ZZ Drainage of Peritoneal Cavity, Percutaneous Approach (ICD-10-PCS; principal; 2021-08-12)
PROC: 0W9B3ZZ Drainage of Left Pleural Cavity, Percutaneous Approach (ICD-10-PCS; 2021-08-12)
PROC: 05PY33Z Removal of Infusion Device from Upper Vein, Percutaneous Approach (ICD-10-PCS; 2021-08-13)
DX: K74.60 Unspecified cirrhosis of liver (principal); E43 Unspecified severe protein-calorie malnutrition; D61.818 Other pancytopenia; D68.59 Other primary thrombophilia; R18.8 Other ascites; J90 Pleural effusion, not elsewhere classified; Z45.2 Encounter for adjustment and management of vascular access device; K56.41 Fecal impaction; Z20.822 Contact with and (suspected) exposure to COVID-19; K72.10 Chronic hepatic failure without coma; Z79.4 Long term (current) use of insulin; Z95.828 Presence of other vascular implants and grafts; Z86.718 Personal history of other venous thrombosis and embolism; Z86.16 Personal history of COVID-19; D64.9 Anemia, unspecified; E11.9 Type 2 diabetes mellitus without complications; I45.10 Unspecified right bundle-branch block; Z68.23 Body mass index [BMI] 23.0-23.9, adult
CPT/HCPCS: 32555; 36415; 70030-TC; 71045; 71250; 83735; 84100; 85025; 85730; 93005; A4663; A6209; G0378; J1447; J1815; P9047

== ENCOUNTER 2022-01-03 11:37 | Inpatient (IN) | payer OTHER ==
[~2022-01-03] VITALS: Ht 157.5 cm; Wt 72.1 kg
[2022-01-03] VITALS (7 sets, daily range): BP systolic 117–132; BP diastolic 57–74
[~2022-01-03 11:37] MED LIST changes: +CHOL10005 PO; -INSU100V10 SQ; -INSU100V11 SQ; -INSU100V11 SUBCUT; +INSU3INS6 SQ; -MIDO10TA PO; -VIT1TABL46 PO; -morphine solution SL
--- NOTE | 2022-01-03 11:43 | NUR ---
patient brought in via ambulance from group home. Abdomen distended placed in 2A. waiting to be seen by ER physician.
--- NOTE | 2022-01-03 11:53 | NUR ---
patient from [facility]. persian speaking and is [facility].
--- NOTE | 2022-01-03 11:55 | NUR ---
patient seen and evaluated by dr. Gonzales.
[2022-01-03] MEDS ORDERED: PANT40TA2 PO (12:06)
[2022-01-03] MEDS ORDERED: MULT-594 PO (12:06)
--- NOTE | 2022-01-03 12:15 | NUR ---
chest xray done.
[2022-01-03 12:20] LABS: MEAN CORPUSCULAR HEMOGLOBIN 31.3 uug (24.7-32.8); PLATELET COUNT (AUTO) 126 K/uL (179-408)
[2022-01-03 12:22] LABS: CREATININE 1.1 mg/dL (0.6-1.3); POTASSIUM 4.4 mmol/L (3.5-5.1)
[2022-01-03 12:27] LABS: BILIRUBIN,DIRECT 0.1 mg/dL (0.0-0.2); BILIRUBIN,TOTAL 0.3 mg/dL (0.2-1.0); TOTAL PROTEIN, SERUM 7.5 g/dL (6.4-8.2)
--- NOTE | 2022-01-03 12:32 | NUR ---
Epic paged waiting for call back. lab called critical wbc. 1.6 Hgb 6.8, Hct. 20.6. Dr Gonzales made aware. ordered for covid test
[2022-01-03 12:33] LABS: HEMATOCRIT 20.6 % (31.2-41.9)
--- NOTE | 2022-01-03 13:58 | NUR ---
ER DOCTOR SPOKE WITH [facility] FOR ADMITING. CALLED [facility]LO[facility] WAITING FOR TELE BED AVAILABILITY.
--- NOTE | 2022-01-03 14:25 | NUR ---
PATIENT ASKING FOR FOOD. DR. SCALES IS OK WITH GIVING PATIENT FOOD AT THIS TIME.
[2022-01-03] MEDS ORDERED: ONDANSETRON 4 MG/2 ML VIAL IV PRN (15:00)
[2022-01-03] MEDS ORDERED: REMEDY ESSENTIAL ZINC PASTE 113 GM TP PRN (15:00)
--- NOTE | 2022-01-03 15:46 | NUR ---
VANESA FROM US CALLED AND POSSIBLE PROCEDURE TO BE SCHEDULED TOMORROW WITH IR DUE TO NO INPATIENT ROOM AVAILABILITY YET.
--- NOTE | 2022-01-03 17:35 | NUR ---
TRANSFERED PT TO FLOOR IN STABLE CONDITION.
--- NOTE | 2022-01-03 18:54 | NUR ---
Admitted pt from ED for Anemia brought via bed stretcher. Patient is alert and oriented x2 able to make needs known. Comfortable on RA 99%. No sob, noted with marked abdominal distention, ble edema +4. Endorsed by ED that patient scheduled for paracentesis tomorrow time unknown. Received call from blood bank that she's left for the day but someone else is coming to come around 9pm to release blood. Admission assessments not finished. Endorsed to next shift.
--- NOTE | 2022-01-03 19:20 | NUR ---
Dr. Ling is aware of admission and for blood trasnfusion later.
[2022-01-03 21:39] LABS: BAND % (MANUAL) 2 % (0-10); LYMPHOCYTES % (MANUAL) 7 % (20-40); MONOCYTES % (MANUAL) 2 % (2-10); NEUTROPHILS % (MANUAL) 89 % (42-75)
--- NOTE | 2022-01-03 22:02 | NUR ---
Started BT, consent signed, VSS. RAYA. Addendum: 01/03/22 at 2244 by Yandy Elizondo RN Will continue to monitor closely.
--- NOTE | 2022-01-03 22:14 | NUR ---
No signs of reaction noted. Will continue to monitor closely.
[2022-01-04] VITALS (7 sets, daily range): BP systolic 93–138; BP diastolic 49–66
--- NOTE | 2022-01-04 00:52 | NUR ---
BT done. VSS. NAD. No signs of reaction noted.
--- NOTE | 2022-01-04 05:24 | NUR ---
Called [place] (son) and left a voicemail regarding patient's procedure. Will follow up later.
[2022-01-04 07:33] LABS: ALANINE AMINOTRANSFERASE < 6 U/L (14-59); ALKALINE PHOSPHATASE 138 U/L (50-136); ASPARTATE AMINOTRANSFERASE < 5 U/L (15-37); CARBON DIOXIDE 23 mmol/L (21-32); CHLORIDE 111 mmol/L (98-107); GLUCOSE 151 mg/dL (74-106); POTASSIUM 4.8 mmol/L (3.5-5.1); UREA NITROGEN, BLOOD 36 mg/dL (7-18)
[2022-01-04 07:37] LABS: HEMATOCRIT 22.8 % (31.2-41.9); MEAN CORPUSCULAR HEMOGLOBIN 31.9 uug (24.7-32.8); MEAN CORPUSCULAR VOLUME 93.5 fL (75.5-95.3); PLATELET COUNT (AUTO) 122 K/uL (179-408)
[2022-01-04] MEDS ORDERED: BISACODYL 10 MG SUPP.RECT RC PRN (08:00)
--- NOTE | 2022-01-04 08:00 | NUR ---
AWAKE ALERT BUT CONFUSED X3, UNABLE TO PARTICIPATE WITH BEDSIDE ASSESSMENTS.
[2022-01-04] MEDS: MULTIVITAMINS,THERAPEUTIC TABLET PO SCH (08:41)
[2022-01-04] MEDS: PANTOPRAZOLE SODIUM 40 MG TABLET.DR PO SCH (08:41)
--- NOTE | 2022-01-04 10:37 | NUR ---
Consent form not signed for paracentesis at this time
--- NOTE | 2022-01-04 11:54 | NUR ---
SPOKED WITH SON AND GAVE CONSENT FOR BLOOD TRANSFUSION AND ABDOMINAL PARACENTESIS.
[2022-01-04 12:42] LABS: LYMPHOCYTES % (MANUAL) 11 % (20-40); MONOCYTES % (MANUAL) 6 % (2-10); NEUTROPHILS % (MANUAL) 83 % (42-75)
--- NOTE | 2022-01-04 15:11 | NUR ---
US GUIDED PARACENTESIS STARTED AT BEDSIDE, CLOSELY MONITORED
--- NOTE | 2022-01-04 15:45 | NUR ---
ABDOMINAL PARACENTESIS COMPLETED, REMOVED 6L OF ASCITIC FLUID
--- NOTE | 2022-01-04 17:47 | NUR ---
RESTING COMFORTABLY IN BED NO SS OF PAIN OR DISTRESS. ASCITIC FLUID SENT FOR ANALYSIS. SEE ORDERS. REMAINS SR ON MONITOR WITH BBB
[2022-01-04] MEDS ORDERED: DOCUSATE SODIUM 100 MG CAPSULE PO SCH (21:00)
[2022-01-04] MEDS ORDERED: INSULIN GLARGINE,HUM 300 UNITS/3 ML CARTRIDGE SQ SCH (21:00)
[2022-01-05 00:23] VITALS: BP 134/59
[2022-01-05 04:00] VITALS: BP 114/48
[2022-01-05] MEDS: PANTOPRAZOLE SODIUM 40 MG TABLET.DR PO SCH (06:08)
--- NOTE | 2022-01-05 06:24 | NUR ---
Pt slept throughout the night. No distress noted. IV site intact. SR on monitor. Abdominal distention noted, not tender to touch. Safety maintained throughout shift. Will endorse to day shift.
--- NOTE | 2022-01-05 08:00 | NUR ---
AWAKE ALERT AND ORIENTED X3 WOLOF SPEAKING , NO SS OF PAIN OR DISTRESS SEEN BY DR MENDOZA AND LISET TELE
[2022-01-05] MEDS: MULTIVITAMINS,THERAPEUTIC TABLET PO SCH (09:09)
[2022-01-05] MEDS ORDERED: LACTULOSE PO SCH (09:45)
[2022-01-05] MEDS ORDERED: CHOLECALCIFEROL 1,000 UNIT TABLET PO SCH (10:00)
[2022-01-05] MEDS ORDERED: LACTULOSE 20 G/30 ML LIQUID UDC PO SCH (10:00)
--- NOTE | 2022-01-05 11:00 | NUR ---
SEEN BY DR FONG WITH ORDER TO DISCHARGE TO [facility], PATIENT RESOURCE SPECIALIST AWARE
[2022-01-05 12:00] VITALS: BP 117/54
--- NOTE | 2022-01-05 15:12 | NUR ---
DISCHARGED TO [facility] VIA AMBULANCE FOR CONTINUITY OF CARE. REPORT GIVEN TO STAFF
[2022-01-05 15:30] VITALS: BP 128/56
[2022-01-05] MEDS ORDERED: PROTEIN SUPPLEMENT (PROSTAT) 30 ML LIQUID PO SCH (17:00)
== END 2022-01-05 15:12 | DRG 433 ==
LOC: ER 11:37 → TELE3 17:47 → MEDSURG3 01-05 08:10
PROVIDERS: ADMIT Internal Medicine; ATTEND Internal Medicine
PROC: 30233N1 Transfusion of Nonautologous Red Blood Cells into Peripheral Vein, Percutaneous Approach (ICD-10-PCS; principal; 2022-01-03)
PROC: 0W9G3ZZ Drainage of Peritoneal Cavity, Percutaneous Approach (ICD-10-PCS; 2022-01-04)
DX: K74.60 Unspecified cirrhosis of liver (principal); D61.818 Other pancytopenia; K76.6 Portal hypertension; R18.8 Other ascites; K72.90 Hepatic failure, unspecified without coma; E11.65 Type 2 diabetes mellitus with hyperglycemia; Z79.4 Long term (current) use of insulin; D63.8 Anemia in other chronic diseases classified elsewhere; Z86.16 Personal history of COVID-19; N18.9 Chronic kidney disease, unspecified; E11.22 Type 2 diabetes mellitus with diabetic chronic kidney disease; I12.9 Hypertensive chronic kidney disease with stage 1 through stage 4 chronic kidney disease, or unspecified chronic kidney disease; Z20.822 Contact with and (suspected) exposure to COVID-19
CPT/HCPCS: 36415; 70030-TC; 71045; 85018; 85025; 85730; 86850; 86900; 86901; 86920; 87070; 93005; A4663; G0378; J1815; P9016

== ENCOUNTER 2022-01-23 07:04 | Inpatient (IN) | payer MEDICAID, MEDICARE, OTHER ==
[~2022-01-23] VITALS: Ht 157.5 cm; Wt 51.7 kg
[~2022-01-23 07:04] MED LIST changes: +MULT-594 PO; -ONDA4TAB5 PO; +PANT40TA2 PO; -PANT40TA49 PO
[2022-01-23 07:47] LABS: MEAN CORPUSCULAR HEMOGLOBIN 30.6 uug (24.7-32.8); MEAN CORPUSCULAR VOLUME 91.2 fL (75.5-95.3); PLATELET COUNT (AUTO) 144 K/uL (179-408)
[2022-01-23 07:58] LABS: BILIRUBIN,DIRECT 0.2 mg/dL (0.0-0.2); BILIRUBIN,TOTAL 0.5 mg/dL (0.2-1.0); CREATININE 1.3 mg/dL (0.6-1.3); POTASSIUM 4.2 mmol/L (3.5-5.1); TOTAL PROTEIN, SERUM 7.6 g/dL (6.4-8.2)
[2022-01-23 08:17] LABS: HEMATOCRIT 19.4 % (31.2-41.9)
--- NOTE | 2022-01-23 08:47 | NUR ---
in/out catheterization done - urine specimen to lab - obtained 800ml dark rachel colored urine obtained.
[2022-01-23 09:32] LABS: *BILIRUBIN,URIN NEGATIVE (NEGATIVE); *BLOOD, URINE NEGATIVE (NEGATIVE); *CLARITY,URINE CLEAR (CLEAR); *COLOR,URINE YELLOW (YELLOW); *KETONES,URINE NEGATIVE (NEGATIVE); *UROBILINOGEN,URINE 0.2 E.U./dl (NORMAL); LEUKOCYTE ESTERASE ,URINE TRACE (NEGATIVE); NITRITE, URINE NEGATIVE (NEGATIVE); PH,URINE 5.5 (5.0-8.0); UGLUCOSE NEGATIVE (NEGATIVE)
[2022-01-23] MEDS ORDERED: RIFA550T PO (09:36)
--- NOTE | 2022-01-23 09:58 | NUR ---
REPORT GIVEN TO MED/TELEVISION TECHNICIAN. SALINE LOCK PLACED ORDERED.
[2022-01-23] MEDS ORDERED: ACETAMINOPHEN 325 MG TABLET PO PRN (10:00)
[2022-01-23] MEDS ORDERED: ONDANSETRON 4 MG/2 ML VIAL IV PRN (10:00)
[2022-01-23] MEDS ORDERED: DEXTROSE 50% 50 ML DISP.SYRIN IV PRN (10:00)
[2022-01-23] MEDS ORDERED: BISACODYL 10 MG SUPP.RECT RC PRN (10:00)
[2022-01-23] MEDS ORDERED: hydrALAZINE HCL 20 MG/1 ML VIAL IV PRN (10:00)
[2022-01-23 10:58] VITALS: BP 115/56
[2022-01-23] MEDS: LACTULOSE 20 G/30 ML LIQUID UDC PO SCH ×2 (11:00→21:02)
--- NOTE | 2022-01-23 11:00 | NUR ---
RECEIVED PT FROM ER VIA BED [facility]. PATIENT IS RESTING COMFORTABLY, NO SS OF SOB OR PAIN. PATIENT'S EYES ARE OPEN, DOES NOT SPEAK BUT FOLLOWS COMMANDS. ABDOMEN VERY DISTENDED AND RIGID, BLE +4 EDEMA. ROUTINE ADMISSION DONE. BED LOWEST AND LOCKED, SIDERAILS UP X2, BLE ELEVATED. PT KEPT COMFORTABLE, CALL LIGHT IN REACH. SEEN AND EXAMINED BY DR. GALLAGHER. MADE AWARE THAT PER LAB SOMEONE WILL COME AT 1PM TO ISSUE BLOOD HE STATED OK. CALLED US X3 RE PARACENTESIS BUT NO ANSWER. WILL CALL AGAIN LATER.
[2022-01-23 11:11] LABS: BACTERIA,URINE MANY /HPF (NONE SEEN); RBC,URINE 0-3 /HPF (0-3); SQUAMOUS EPITHELIAL CELL,UR FEW /HPF (NONE SEEN)
[2022-01-23] MEDS: BLOOD SUGAR DIAGNOSTIC 1 EACH STRIP VI SCH ×3 (11:30→20:57)
--- NOTE | 2022-01-23 11:37 | NUR ---
ASKED DR. GALLAGHER IF PT IS TO BE KEPT NPO FOR PARACENTESIS HE STATES TO FEED HER WITH NEW DIET ORDER NOTED.
[2022-01-23] MEDS: MULTIVITAMINS,THERAPEUTIC TABLET PO SCH (13:03)
[2022-01-23] MEDS: CHOLECALCIFEROL 1,000 UNIT TABLET PO SCH (13:03)
[2022-01-23 13:29] VITALS: BP 111/58
[2022-01-23 13:45] VITALS: BP 116/57
--- NOTE | 2022-01-23 13:47 | NUR ---
Consent not signed at this time. Dianna Kaiser will call me when signed. para on hold.
[2022-01-23 14:15] VITALS: BP 123/61
[2022-01-23 16:15] VITALS: BP 139/70
--- NOTE | 2022-01-23 16:55 | NUR ---
s/p 1 unit of blood transfused per MD order. No ss of adverse or allergic reaction noted.
[2022-01-23] MEDS: RIFAXIMIN 550 MG TABLET PO SCH (17:00)
[2022-01-23] MEDS: INSULIN REGULAR, HUMAN 300 UNIT/3 ML VIAL SQ PRN (17:45)
[2022-01-23 18:35] LABS: BAND % (MANUAL) 4 % (0-10); LYMPHOCYTES % (MANUAL) 14 % (20-40); MONOCYTES % (MANUAL) 6 % (2-10); NEUTROPHILS % (MANUAL) 76 % (42-75)
--- NOTE | 2022-01-23 18:36 | NUR ---
dr. caban is that aware per us tech paracentesis will be done tomorrow no time yet. per md to hold albumin until after procedure. will endorse. pt resting comfortably. no ss of pain or sob. breathing even and non labored. safety measures kept. will cont to monitor.
--- NOTE | 2022-01-23 19:15 | NUR ---
Received patient on bed, awake, no shortness of breath noted, no complaint of pain. For paracenthesis tomorrow as ordered, with consent signed by patient`s son attached to chart.
[2022-01-23 20:07] VITALS: BP 122/57
[2022-01-23 20:21] LABS: HEMATOCRIT 22.1 % (31.2-41.9)
[2022-01-23] MEDS: DOCUSATE SODIUM 100 MG CAPSULE PO SCH (20:54)
[2022-01-23] MEDS: INSULIN GLARGINE,HUM 300 UNITS/3 ML CARTRIDGE SQ SCH (21:00)
--- NOTE | 2022-01-24 | NUR ---
MRSA swab sent to lab.
--- NOTE | 2022-01-24 02:00 | NUR ---
Repositioned patient for comfort, special matress applied.
[2022-01-24] MEDS: MORPHINE SULFATE 2 MG/1 ML DISP.SYRIN IV PRN (02:07)
[2022-01-24 04:18] VITALS: BP 114/66
[2022-01-24 04:21] LABS: MEAN CORPUSCULAR HEMOGLOBIN 30.7 uug (24.7-32.8); MEAN CORPUSCULAR VOLUME 90.5 fL (75.5-95.3); PLATELET COUNT (AUTO) 120 K/uL (179-408)
--- NOTE | 2022-01-24 04:25 | NUR ---
Received call form Lab from ([facility]) critical result WBC 1.9. Dr Sami Castañeda notified, no new order.
[2022-01-24 04:36] LABS: BILIRUBIN,TOTAL 1.1 mg/dL (0.2-1.0); CREATININE 1.2 mg/dL (0.6-1.3); PHOSPHOROUS 2.6 mg/dL (2.5-4.9); TOTAL PROTEIN, SERUM 6.6 g/dL (6.4-8.2)
[2022-01-24 05:00] LABS: EOSINOPHILS % (MANUAL) 2 % (0-8); LYMPHOCYTES % (MANUAL) 10 % (20-40); MONOCYTES % (MANUAL) 2 % (2-10); NEUTROPHILS % (MANUAL) 86 % (42-75)
--- NOTE | 2022-01-24 05:42 | NUR ---
Patient asleep, no shortness of breath, Repositioned for comfort. No shortness of breath. Needs maximum assist when cleaning. For paracenthesis today, no time yet, with consent signed by [email or web address] john
[2022-01-24] MEDS ORDERED: PANTOPRAZOLE SODIUM 40 MG TABLET.DR PO SCH (07:00)
[2022-01-24] MEDS: BLOOD SUGAR DIAGNOSTIC 1 EACH STRIP VI SCH ×4 (07:36→21:35)
[2022-01-24] MEDS: CHOLECALCIFEROL 1,000 UNIT TABLET PO SCH (08:58)
[2022-01-24] MEDS: MULTIVITAMINS,THERAPEUTIC TABLET PO SCH (08:58)
[2022-01-24] MEDS: LACTULOSE 20 G/30 ML LIQUID UDC PO SCH ×2 (10:48→17:12)
[2022-01-24] MEDS: PANTOPRAZOLE SODIUM 40 MG TABLET.DR PO SCH ×2 (10:48→17:11)
[2022-01-24] MEDS: RIFAXIMIN 550 MG TABLET PO SCH (10:49)
--- NOTE | 2022-01-24 11:33 | NUR ---
WOUND CARE CONSULT: PT PRESENTS WITH SACRAL SCARRING, 4+ PITTING EDEMA TO RT FOOT AND DRY WOUNDS TO TOES, PRESENT ON ADMISSION. DPM CONSULT CALLED TO DR OMALLEY. PT IS ON FIRST [facility]EP [facility]. TALBOT IN AGREEMENT WITH PLAN OF CARE.
[2022-01-24] MEDS: INSULIN REGULAR, HUMAN 300 UNITS/3 ML VIAL SQ PRN ×2 (11:45→17:05)
[2022-01-24 11:47] VITALS: BP 139/70
[2022-01-24 12:41] LABS: HEMATOCRIT 22.5 % (31.2-41.9)
--- NOTE | 2022-01-24 14:30 | NUR ---
ULTRASOUND GUIDED PARACENTESIS STARTED AT BEDSIDE BY RADIOLOGIST. PATIENT CLOSELY MONITORED
--- NOTE | 2022-01-24 14:45 | NUR ---
CONTINUED PARACENTESIS. PATIENT SHOWED NO SIGNS OF HYPOTENSION, PATIENT IS ALERT AND AWAKE. WARM AND DRY SKIN.
--- NOTE | 2022-01-24 15:42 | NUR ---
HOSPITALIST NOTIFIED OF ABDOMINAL FLUID 6 L OUT AND ASKED IF HE WANTS MORE TO BE REMOVED. HE SAID TO GET MORE IF BP IS STABLE. BP RECHECKED 124/63, PULSE 90. WILL CONTINUE TO OBSERVE WHILE ON PARACENTESIS
--- NOTE | 2022-01-24 15:53 | NUR ---
PATIENT TOLERATED PARACENTESIS WELL. 6.8 L OF ABDOMINAL FLUID WAS REMOVED. VITAL SIGNS POST PROCEDURE: BP 126/63 PULSE 83 SPO2 99 T 95.3 F
[2022-01-24 16:32] VITALS: BP 125/55
[2022-01-24] MEDS: ALBUMIN HUMAN 25% 100 ML IV SCH ×2 (16:39→21:37)
[2022-01-24 20:00] VITALS: BP 127/64
[2022-01-24 20:18] LABS: HEMATOCRIT 22.2 % (31.2-41.9)
--- NOTE | 2022-01-24 21:00 | NUR ---
HGB reported by lab = 7.4 , not reported to Md, ALMOST SAME LEVEL AT 7.7
[2022-01-24] MEDS: DOCUSATE SODIUM 100 MG CAPSULE PO SCH (21:35)
[2022-01-24] MEDS: INSULIN GLARGINE,HUM 300 UNITS/3 ML CARTRIDGE SQ SCH (21:36)
[2022-01-25] MEDS: MORPHINE SULFATE 2 MG/1 ML DISP.SYRIN IV PRN (04:11)
[2022-01-25] MEDS ORDERED: ALBUMIN HUMAN 25% 50 ML ONE ×2 (04:20→04:21)
[2022-01-25 04:27] LABS: HEMATOCRIT 21.6 % (31.2-41.9); MEAN CORPUSCULAR HEMOGLOBIN 30.9 uug (24.7-32.8); MEAN CORPUSCULAR VOLUME 90.3 fL (75.5-95.3); PLATELET COUNT (AUTO) 112 K/uL (179-408)
[2022-01-25] MEDS: ALBUMIN HUMAN 25% 100 ML IV SCH (04:32)
[2022-01-25 04:37] VITALS: BP 138/66
--- NOTE | 2022-01-25 05:04 | NUR ---
wbc 1.8; hgb 7.4; not referred to MD ; previously low.
[2022-01-25 05:05] LABS: POTASSIUM 3.7 mmol/L (3.5-5.1)
[2022-01-25 05:33] LABS: EOSINOPHILS % (MANUAL) 2 % (0-8); LYMPHOCYTES % (MANUAL) 4 % (20-40); MONOCYTES % (MANUAL) 8 % (2-10); NEUTROPHILS % (MANUAL) 86 % (42-75)
[2022-01-25] MEDS: PANTOPRAZOLE SODIUM 40 MG TABLET.DR PO SCH ×2 (06:32→16:38)
[2022-01-25] MEDS: BLOOD SUGAR DIAGNOSTIC 1 EACH STRIP VI SCH ×4 (06:32→20:31)
[2022-01-25] MEDS: CHOLECALCIFEROL 1,000 UNIT TABLET PO SCH (09:05)
[2022-01-25] MEDS: LACTULOSE 20 G/30 ML LIQUID UDC PO SCH ×2 (09:05→16:37)
[2022-01-25] MEDS: MULTIVITAMINS,THERAPEUTIC TABLET PO SCH (09:05)
[2022-01-25] MEDS: RIFAXIMIN 550 MG TABLET PO SCH (09:06)
--- NOTE | 2022-01-25 10:57 | NUR ---
Pt has critical lab values of hgb 7.4. upward trending from previous labs. critical level of WBC 1.8. MD notified of results. Pt is a/o x 3, Eritrean speaking. no complaints of pain, no fever. Comfort measures provided, call light within reach. Will continue to monitor.
[2022-01-25] MEDS ORDERED: CEFTRIAXONE 1 G in IV DEXTROSE 5% 50 ML IV SCH (12:00)
[2022-01-25 12:04] VITALS: BP 127/69
[2022-01-25 12:16] LABS: HEMATOCRIT 21.9 % (31.2-41.9)
[2022-01-25] MEDS: INSULIN REGULAR, HUMAN 300 UNIT/3 ML VIAL SQ PRN (12:25)
[2022-01-25 16:07] VITALS: BP 138/67
[2022-01-25] MEDS: GLUCERNA SHAKE VANILLA 237 ML CAN PO SCH (16:29)
[2022-01-25] MEDS: INSULIN REGULAR, HUMAN 300 UNITS/3 ML VIAL SQ PRN (16:42)
[2022-01-25] MEDS: DOCUSATE SODIUM 100 MG CAPSULE PO SCH (20:31)
[2022-01-25] MEDS: INSULIN GLARGINE,HUM 300 UNITS/3 ML CARTRIDGE SQ SCH (20:34)
[2022-01-25 20:42] LABS: HEMATOCRIT 22.6 % (31.2-41.9)
[2022-01-25 20:52] VITALS: BP 123/63
[2022-01-26 04:15] VITALS: BP 130/68
[2022-01-26] MEDS: PANTOPRAZOLE SODIUM 40 MG TABLET.DR PO SCH (06:20)
[2022-01-26] MEDS: BLOOD SUGAR DIAGNOSTIC 1 EACH STRIP VI SCH ×2 (06:30→11:06)
[2022-01-26 07:31] LABS: HEMATOCRIT 23.2 % (31.2-41.9); MEAN CORPUSCULAR HEMOGLOBIN 31.1 uug (24.7-32.8); MEAN CORPUSCULAR VOLUME 91.1 fL (75.5-95.3); PLATELET COUNT (AUTO) 116 K/uL (179-408)
[2022-01-26 07:35] LABS: CREATININE 0.9 mg/dL (0.6-1.3); POTASSIUM 3.9 mmol/L (3.5-5.1)
--- NOTE | 2022-01-26 08:03 | NUR ---
Lab reported critical value of WBC 1.6. MD aware. course of antibiotics changed, plan is to discharge pt to SNF. Will continue to monitor.
[2022-01-26] MEDS: MULTIVITAMINS,THERAPEUTIC TABLET PO SCH (08:53)
[2022-01-26] MEDS: RIFAXIMIN 550 MG TABLET PO SCH (08:54)
[2022-01-26] MEDS: GLUCERNA SHAKE VANILLA 237 ML CAN PO SCH ×2 (08:54→13:29)
[2022-01-26] MEDS: CHOLECALCIFEROL 1,000 UNIT TABLET PO SCH (08:54)
[2022-01-26] MEDS: LACTULOSE 20 G/30 ML LIQUID UDC PO SCH (08:54)
[2022-01-26] MEDS ORDERED: SULFAMETH/TRIMETH 800/160 MG TABLET PO SCH (09:00)
[2022-01-26 10:22] LABS: EOSINOPHILS % (MANUAL) 2 % (0-8); LYMPHOCYTES % (MANUAL) 11 % (20-40); MONOCYTES % (MANUAL) 7 % (2-10); NEUTROPHILS % (MANUAL) 80 % (42-75)
[2022-01-26] MEDS: INSULIN REGULAR, HUMAN 300 UNIT/3 ML VIAL SQ PRN (11:08)
--- NOTE | 2022-01-26 13:57 | NUR ---
Pt has been discharged back to [facility] via [facility] ambulance. Report called to nursing policy change clerks supervisor Stephanie. Pt is a/o x 2, gabonese speaking confused. Son has been notified of transfer. All discharge information included with transfer. No personal belongings noted. IV access removed. Pt to continue PO antibiotics as MD ordered. No signs of acute distress. Pt vitals upon discharge BP 116/60, HR 78, SpO2 97% on room air, rr 16.
== END 2022-01-26 13:45 | DRG 432 ==
LOC: ER 07:13 → MEDSURG3 09:55
PROVIDERS: ADMIT Internal Medicine; ATTEND Nurse Practitioner Acute Care
PROC: 30233N1 Transfusion of Nonautologous Red Blood Cells into Peripheral Vein, Percutaneous Approach (ICD-10-PCS; principal; 2022-01-23)
PROC: 0W9G3ZZ Drainage of Peritoneal Cavity, Percutaneous Approach (ICD-10-PCS; 2022-01-24)
DX: K74.60 Unspecified cirrhosis of liver (principal); N18.6 End stage renal disease; G93.41 Metabolic encephalopathy; K72.00 Acute and subacute hepatic failure without coma; R18.8 Other ascites; D61.818 Other pancytopenia; D68.59 Other primary thrombophilia; E44.1 Mild protein-calorie malnutrition; I13.2 Hypertensive heart and chronic kidney disease with heart failure and with stage 5 chronic kidney disease, or end stage renal disease; N39.0 Urinary tract infection, site not specified; K72.10 Chronic hepatic failure without coma; K75.81 Nonalcoholic steatohepatitis (NASH); Z74.09 Other reduced mobility; D63.8 Anemia in other chronic diseases classified elsewhere; E11.22 Type 2 diabetes mellitus with diabetic chronic kidney disease; E83.51 Hypocalcemia; E88.09 Other disorders of plasma-protein metabolism, not elsewhere classified; I25.10 Atherosclerotic heart disease of native coronary artery without angina pectoris; I25.2 Old myocardial infarction; Z79.4 Long term (current) use of insulin; Z86.16 Personal history of COVID-19; R23.4 Changes in skin texture; Z68.20 Body mass index [BMI] 20.0-20.9, adult; F03.90 Unspecified dementia, unspecified severity, without behavioral disturbance, psychotic disturbance, mood disturbance, and anxiety
CPT/HCPCS: 36415; 70030-TC; 83690; 84100; 85018; 85025; 85730; 86850; 86900; 86901; 86920; 87077; 87086; 97161; A4663; A6209; C1758; G0378; J0696; J1815; J2270; P9016; P9047

== ENCOUNTER 2022-02-21 15:13 | Inpatient (IN) | payer OTHER ==
[~2022-02-21] VITALS: Ht 154.9 cm; Wt 72.6 kg
[~2022-02-21 15:13] MED LIST changes: +RIFA550T PO
[2022-02-21 17:19] LABS: MEAN CORPUSCULAR HEMOGLOBIN 29.7 uug (24.7-32.8); MEAN CORPUSCULAR VOLUME 92.4 fL (75.5-95.3); PLATELET COUNT (AUTO) 162 K/uL (179-408)
[2022-02-21 17:31] LABS: HEMATOCRIT 19.8 % (31.2-41.9)
--- NOTE | 2022-02-21 17:56 | NUR ---
PT IS IN ROOM #1B. DR GIORDANO EVALUATED THE PT.
[2022-02-21] MEDS ORDERED: MORPHINE SULFATE 2 MG/1 ML DISP.SYRIN ONE (18:04)
[2022-02-21] MEDS ORDERED: ONDANSETRON 4 MG/2 ML VIAL ONE (18:04)
[2022-02-21] MEDS ORDERED: MORPHINE SULFATE 2 MG/1 ML DISP.SYRIN IV ONE (18:15)
[2022-02-21] MEDS ORDERED: ONDANSETRON 4 MG/2 ML VIAL IV ONE (18:15)
--- NOTE | 2022-02-21 19:07 | NUR ---
Note josefaone in EDM - 02/21/22 at 2316 by YOLANDA RECEIVED REPORT FROM MORNING SHIFT, MOHIT. PT NOTED TO BE IN BED RESTING COMFORTABLY. A/O X2-3. NO SOB OR LABORED BREATHING. VSS.
--- NOTE | 2022-02-21 19:07 | NUR ---
RECEIVED REPORT FROM MORNING SHIFT, RN. PT NOTED TO BE IN BED RESTING COMFORTABLY. A/O X1-2. NO SOB OR LABORED BREATHING. VSS.
[2022-02-21 20:57] LABS: BILIRUBIN,DIRECT 0.1 mg/dL (0.0-0.2); BILIRUBIN,TOTAL 0.2 mg/dL (0.2-1.0); TOTAL PROTEIN, SERUM 7.7 g/dL (6.4-8.2)
[2022-02-21 21:35] LABS: POTASSIUM 4.6 mmol/L (3.5-5.1)
--- NOTE | 2022-02-21 23:14 | NUR ---
DR. ASIA SPENCE FOR PANEL CALL.
[2022-02-21] MEDS ORDERED: MORPHINE SULFATE 2 MG/1 ML DISP.SYRIN IV PRN (23:45)
[2022-02-21] MEDS ORDERED: ONDANSETRON 4 MG/2 ML VIAL IM PRN (23:45)
[2022-02-21] MEDS ORDERED: PANTOPRAZOLE SODIUM 40 MG TABLET.DR PO ONE (23:45)
[2022-02-22] MEDS ORDERED: KETAMINE HCL 500 MG/10 ML INJ ONE (00:07)
[2022-02-22] MEDS ORDERED: KETAMINE HCL 500 MG/10 ML INJ IV ONE (00:15)
[2022-02-22 00:32] LABS: NEUTROPHILS % (MANUAL) 0 % (42-75)
--- NOTE | 2022-02-22 01:20 | NUR ---
CALLED PT'S SON AND MADE AWARE OF PT'S CONDITION AND RECEIVED INFORMED CONSENT FOR BLOOD TRANSFUSION.
--- NOTE | 2022-02-22 02:04 | NUR ---
PT NOTED TO BE IN BED, WATCHING TV. NO SOB OR LABORED BREATHING, AFEBRILE.
--- NOTE | 2022-02-22 04:01 | NUR ---
PT COMPLETED 1 UNIT OF PACKED RBCS, NO ASE NOTED. PT IS AWAKE, WATCHING TV. NO SOB OR LABORED BREATHING. AFEBRILE. VSS.
--- NOTE | 2022-02-22 07:01 | NUR ---
PT NOTED TO BE SOILED, PROPER PERINEAL CARE RENDERED. NOW NOTED TO BE CLEAN AND DRY, COMFORTABLE, DENIES ANY PAIN/DISCOMFORT AT THIS TIME.
[2022-02-22 07:15] LABS: HEMATOCRIT 23.4 % (31.2-41.9); MEAN CORPUSCULAR HEMOGLOBIN 30.5 uug (24.7-32.8); MEAN CORPUSCULAR VOLUME 89.2 fL (75.5-95.3); PLATELET COUNT (AUTO) 165 K/uL (179-408)
[2022-02-22 07:41] LABS: BILIRUBIN,TOTAL 0.9 mg/dL (0.2-1.0); MAGNESIUM 2.3 mg/dL (1.8-2.4); POTASSIUM 4.9 mmol/L (3.5-5.1); TOTAL PROTEIN, SERUM 7.4 g/dL (6.4-8.2)
--- NOTE | 2022-02-22 08:44 | NUR ---
REPORT WAS GIVEN TO DRYING MACHINE RECEIVER. PT WAS TRANSFERED TO RTELEMETRY ROOM #301A.
[2022-02-22] MEDS ORDERED: PANTOPRAZOLE SODIUM 40 MG TABLET.DR PO SCH (09:00)
[2022-02-22 09:08] VITALS: BP 110/59
[2022-02-22] MEDS ORDERED: HOME MED MISCELLANEOUS XX SCH (11:00)
[2022-02-22] MEDS ORDERED: BISACODYL 10 MG SUPP.RECT RC PRN (11:00)
[2022-02-22] MEDS ORDERED: DEXTROSE 50% 50 ML DISP.SYRIN IV PRN (11:00)
--- NOTE | 2022-02-22 11:44 | NUR ---
Obtained consent for ultrasound guided paracentesis as ordered, patient stated she is unable to sign due to her hands were shaking, two witnesses signed and in chart. Informed radiology. per Radiology, procedure will be done after 2pm. will continue to monitor.
[2022-02-22] MEDS: BLOOD SUGAR DIAGNOSTIC 1 EACH STRIP VI SCH ×3 (11:56→20:33)
[2022-02-22] MEDS: MULTIVITAMINS,THERAPEUTIC TABLET PO SCH (11:56)
[2022-02-22] MEDS: INSULIN REGULAR, HUMAN 300 UNIT/3 ML VIAL SQ PRN ×3 (11:58→20:34)
[2022-02-22 16:38] VITALS: BP 124/61
--- NOTE | 2022-02-22 18:44 | NUR ---
Patient remained stable, not in any acute distress. Paracentesis was not done, awaiting MD signatures. kept safe. skin intact upon admission. oriented to the room, kept call light within reach. safety measure maintained. on soft diet, aspiration precaution maintained. Abdominal girth measurement is 119cm. will endorse to the next shift for continuity of care.
--- NOTE | 2022-02-22 19:30 | NUR ---
Received patient lying in bed. AAOx2-3. Luxembourgish speaking only. YOMBA SHOSHONE. Denies any pain or SOB. NSR on tele with HR of 76/min. Abdomen distended. IV site on left wrist intact and patent. Needs assessed and attended to. Safety measure initiated and call light within reached.
[2022-02-22 20:22] VITALS: BP 142/68
[2022-02-22] MEDS: DOCUSATE SODIUM 100 MG CAPSULE PO SCH (20:27)
[2022-02-22] MEDS: INSULIN GLARGINE,HUM 300 UNITS/3 ML CARTRIDGE SQ SCH (20:34)
[2022-02-22] MEDS ORDERED: LACTULOSE 20 G/30 ML LIQUID UDC PO SCH (21:00)
[2022-02-23 00:26] VITALS: BP 131/68
[2022-02-23 04:15] VITALS: BP 120/63
--- NOTE | 2022-02-23 05:37 | NUR ---
Patient slept well. Denies any pain or SOB. In no acute distress. IV site on left wrist remains intact and patent. NSR on tele with HR of 82/min. Abd. remains distended. Awaiting paracentesis once IC signed by 2 MD. Needs attended to and met. Kept dry, clean and comfortable.
[2022-02-23] MEDS: PANTOPRAZOLE SODIUM 40 MG TABLET.DR PO SCH (06:12)
[2022-02-23 06:33] LABS: HEMATOCRIT 21.8 % (31.2-41.9); MEAN CORPUSCULAR VOLUME 89.2 fL (75.5-95.3); PLATELET COUNT (AUTO) 149 K/uL (179-408)
[2022-02-23] MEDS: BLOOD SUGAR DIAGNOSTIC 1 EACH STRIP VI SCH ×4 (06:34→20:49)
[2022-02-23] MEDS: LACTULOSE 20 G/30 ML LIQUID UDC PO SCH ×3 (08:32→21:09)
[2022-02-23] MEDS: CHOLECALCIFEROL 1,000 UNIT TABLET PO SCH (08:32)
[2022-02-23] MEDS: MULTIVITAMINS,THERAPEUTIC TABLET PO SCH (08:33)
[2022-02-23] MEDS: RIFAXIMIN 550 MG TABLET PO SCH (08:34)
--- NOTE | 2022-02-23 09:00 | NUR ---
Keaton Grajeda MENTAL HEALTH CLINICIAN aware of hgb 7.3 with order to monitor for now.
--- NOTE | 2022-02-23 09:30 | NUR ---
called Toñito at ultrasound and informed of informed consent being signed by 2 MD's, per Toñito he will call radiology and when its time to do thoracentesis he will call.
[2022-02-23 11:10] VITALS: BP 105/64
[2022-02-23 12:13] LABS: *OCCULT BLOOD STOOL POSITIVE (NEGATIVE)
[2022-02-23] MEDS: INSULIN REGULAR, HUMAN 300 UNIT/3 ML VIAL SQ PRN ×3 (12:17→20:54)
[2022-02-23] MEDS ORDERED: ALBUMIN HUMAN 25% 50 ML IV SCH ×2 (12:30→16:15)
--- NOTE | 2022-02-23 14:00 | NUR ---
thoracentesis performed by md output was 6l, tolerated well. patient with v/s wnl at this time. no bleeding noted to thoracentesis site.
[2022-02-23 15:00] VITALS: BP 117/57
[2022-02-23 20:00] VITALS: BP_SYST 120; BP_SYST 128; BP_DIAS 64; BP_DIAS 66
[2022-02-23] MEDS: DOCUSATE SODIUM 100 MG CAPSULE PO SCH (20:41)
[2022-02-23] MEDS: INSULIN GLARGINE,HUM 300 UNITS/3 ML CARTRIDGE SQ SCH (20:55)
[2022-02-24] VITALS (10 sets, daily range): BP systolic 110–120; BP diastolic 54–63
--- NOTE | 2022-02-24 05:42 | NUR ---
Pt slept throughout the night. No distress noted. IV site intact. Pt is confused but able to answer simple questions. Tolerated all medications given. Safety maintained throughout the shift. Will endorse to day shift.
[2022-02-24] MEDS: LACTULOSE 20 G/30 ML LIQUID UDC PO SCH ×3 (06:09→13:33)
[2022-02-24] MEDS: PANTOPRAZOLE SODIUM 40 MG TABLET.DR PO SCH (06:09)
[2022-02-24] MEDS: BLOOD SUGAR DIAGNOSTIC 1 EACH STRIP VI SCH ×4 (06:17→20:54)
[2022-02-24 06:44] LABS: MEAN CORPUSCULAR HEMOGLOBIN 29.6 uug (24.7-32.8); MEAN CORPUSCULAR VOLUME 88.6 fL (75.5-95.3); PLATELET COUNT (AUTO) 127 K/uL (179-408)
[2022-02-24 07:05] LABS: HEMATOCRIT 20.5 % (31.2-41.9)
[2022-02-24] MEDS ORDERED: FUROSEMIDE 20 MG/2 ML VIAL IV ONE (08:00)
[2022-02-24] MEDS: MULTIVITAMINS,THERAPEUTIC TABLET PO SCH (08:51)
[2022-02-24] MEDS: CHOLECALCIFEROL 1,000 UNIT TABLET PO SCH (08:51)
[2022-02-24] MEDS: RIFAXIMIN 550 MG TABLET PO SCH (08:55)
[2022-02-24] MEDS: INSULIN REGULAR, HUMAN 300 UNIT/3 ML VIAL SQ PRN ×3 (11:35→21:05)
--- NOTE | 2022-02-24 12:36 | NUR ---
Held on 0800 Furosemide since it only should be given after blood transfusion in her case, and the patient haven't gotten the transfusion yet at this time
[2022-02-24] MEDS ORDERED: FUROSEMIDE 20 MG/2 ML VIAL IV PRN (12:45)
--- NOTE | 2022-02-24 19:00 | NUR ---
Patient awake danish, no sob no chest pain noted, tele monitor sinus rhythm at this time. cont to monitor.
--- NOTE | 2022-02-24 20:47 | NUR ---
Patient awake transfusing 1 unit WBC no adverse reaction noted at this time. cont to monitor.
[2022-02-24] MEDS: PANTOPRAZOLE SODIUM 40 MG VIAL IV SCH (20:54)
[2022-02-24] MEDS: DOCUSATE SODIUM 100 MG CAPSULE PO SCH (20:55)
[2022-02-24] MEDS: INSULIN GLARGINE,HUM 300 UNITS/3 ML CARTRIDGE SQ SCH (21:05)
--- NOTE | 2022-02-24 23:25 | NUR ---
Transfused 1 unit PRBC tolerate well no adverse reaction noted, cont to monitor.
[2022-02-25 00:16] VITALS: BP 120/61
[2022-02-25 04:00] VITALS: BP 111/55
[2022-02-25] MEDS: LACTULOSE 20 G/30 ML LIQUID UDC PO SCH ×3 (05:38→21:26)
[2022-02-25] MEDS: BLOOD SUGAR DIAGNOSTIC 1 EACH STRIP VI SCH ×4 (05:38→21:21)
--- NOTE | 2022-02-25 06:18 | NUR ---
Patient awake speak solomon islander but understand Yakut, patient abdomen distended and leaking clear liquid, kept site cover, on tele monitor sinus rhythm at this time, cont to monitor.
[2022-02-25 07:05] LABS: HEMATOCRIT 27.3 % (31.2-41.9); MEAN CORPUSCULAR HEMOGLOBIN 29.5 uug (24.7-32.8); MEAN CORPUSCULAR VOLUME 86.9 fL (75.5-95.3); PLATELET COUNT (AUTO) 140 K/uL (179-408)
[2022-02-25 07:32] LABS: CREATININE 1.1 mg/dL (0.6-1.3); MAGNESIUM 1.9 mg/dL (1.8-2.4); PHOSPHOROUS 2.7 mg/dL (2.5-4.9)
[2022-02-25 08:00] VITALS: BP 110/61
[2022-02-25] MEDS: MULTIVITAMINS,THERAPEUTIC TABLET PO SCH (09:00)
[2022-02-25] MEDS: PANTOPRAZOLE SODIUM 40 MG VIAL IV SCH ×2 (09:00→21:20)
[2022-02-25] MEDS: CHOLECALCIFEROL 1,000 UNIT TABLET PO SCH (09:00)
[2022-02-25] MEDS: RIFAXIMIN 550 MG TABLET PO SCH (09:01)
[2022-02-25 11:01] VITALS: BP 118/66
--- NOTE | 2022-02-25 11:30 | NUR ---
Pt's blood sugar via accucheck was 69. Provided four orange juices to pt. Pt is a/o x 2-3 no decline in mental status, pt is able to communicate needs. will reassess and recheck blood sugar.
--- NOTE | 2022-02-25 11:50 | NUR ---
Rechecked pt blood sugar, resulted as 121. Increased from initial check and pt is still alert and oriented. no signs of acute distress.
[2022-02-25 15:00] VITALS: BP 119/65
--- NOTE | 2022-02-25 15:00 | NUR ---
Pt is scheduled for an EGD tomorrow morning 02/26/22 0900. Consent obtained via telephone from [facility]. Consent was witnessed by two RNs. Pt will be placed NPO after midnight.
[2022-02-25] MEDS: INSULIN REGULAR, HUMAN 300 UNIT/3 ML VIAL SQ PRN ×2 (16:40→21:35)
[2022-02-25 20:35] VITALS: BP 119/62
[2022-02-25] MEDS: DOCUSATE SODIUM 100 MG CAPSULE PO SCH (21:20)
[2022-02-25] MEDS: INSULIN GLARGINE,HUM 300 UNITS/3 ML CARTRIDGE SQ SCH (21:34)
[2022-02-26 00:14] VITALS: BP 113/63
[2022-02-26 04:10] VITALS: BP 118/63
[2022-02-26] MEDS: BLOOD SUGAR DIAGNOSTIC 1 EACH STRIP VI SCH ×4 (05:43→21:00)
[2022-02-26] MEDS: LACTULOSE 20 G/30 ML LIQUID UDC PO SCH ×3 (05:43→22:00)
--- NOTE | 2022-02-26 06:35 | NUR ---
Patient awake alert, no sob no chest pain, tele monitor sinus rhythm at this time, abdomen still large, no leaking from the puncture site, kept clean and dry, blood sugar is low 69 this morning, given Dextros iv 25g, as ordered, patient remains NPO at this for EGD, cont to monitor.
[2022-02-26 06:49] LABS: CREATININE 1.2 mg/dL (0.6-1.3); POTASSIUM 4.3 mmol/L (3.5-5.1)
[2022-02-26 06:50] LABS: HEMATOCRIT 27.1 % (31.2-41.9); MEAN CORPUSCULAR HEMOGLOBIN 29.7 uug (24.7-32.8); MEAN CORPUSCULAR VOLUME 88.2 fL (75.5-95.3); PLATELET COUNT (AUTO) 143 K/uL (179-408)
[2022-02-26] MEDS: PANTOPRAZOLE SODIUM 40 MG VIAL IV SCH ×2 (09:00→22:54)
[2022-02-26] MEDS: CHOLECALCIFEROL 1,000 UNIT TABLET PO SCH (09:00)
[2022-02-26] MEDS: MULTIVITAMINS,THERAPEUTIC TABLET PO SCH (09:00)
[2022-02-26] MEDS: RIFAXIMIN 550 MG TABLET PO SCH (09:00)
--- NOTE | 2022-02-26 09:15 | NUR ---
patient transported for EGD by surgical team
[2022-02-26] MEDS ORDERED: PROPOFOL 200 MG/20 ML BOTTLE IV ONE (10:24)
[2022-02-26] MEDS ORDERED: LIDOCAINE-MPF 2% 5 ML VIAL IJ ONE (10:24)
--- NOTE | 2022-02-26 11:13 | NUR ---
patient returned from EGD, received from CARLOS RN, patient tolerated procedure well
[2022-02-26 11:52] VITALS: BP 126/64
--- NOTE | 2022-02-26 15:00 | NUR ---
performed bedside swallow test, patient passed, no choking, no coughing, tolerated well
[2022-02-26 16:10] VITALS: BP 130/66
--- NOTE | 2022-02-26 17:00 | NUR ---
patient resting in bed, GCS 15
[2022-02-26 20:21] VITALS: BP 117/63
[2022-02-26] MEDS: INSULIN GLARGINE,HUM 300 UNITS/3 ML CARTRIDGE SQ SCH (21:00)
[2022-02-26] MEDS: DOCUSATE SODIUM 100 MG CAPSULE PO SCH (21:00)
[2022-02-27 00:18] VITALS: BP 121/61
[2022-02-27] MEDS: INSULIN REGULAR, HUMAN 300 UNIT/3 ML VIAL SQ PRN ×2 (00:49→12:07)
[2022-02-27 04:00] VITALS: BP 123/66
[2022-02-27 06:31] LABS: HEMATOCRIT 28.6 % (31.2-41.9); MEAN CORPUSCULAR HEMOGLOBIN 29.7 uug (24.7-32.8); MEAN CORPUSCULAR VOLUME 87.9 fL (75.5-95.3); PLATELET COUNT (AUTO) 133 K/uL (179-408)
[2022-02-27 06:51] LABS: CREATININE 1.2 mg/dL (0.6-1.3); POTASSIUM 4.5 mmol/L (3.5-5.1)
[2022-02-27] MEDS: LACTULOSE 20 G/30 ML LIQUID UDC PO SCH ×2 (07:14→13:03)
[2022-02-27] MEDS: BLOOD SUGAR DIAGNOSTIC 1 EACH STRIP VI SCH ×2 (08:09→11:56)
[2022-02-27] MEDS ORDERED: SPIR50TA5 PO (08:10)
[2022-02-27 08:30] VITALS: BP 115/61
[2022-02-27] MEDS: CHOLECALCIFEROL 1,000 UNIT TABLET PO SCH (08:31)
[2022-02-27] MEDS: PANTOPRAZOLE SODIUM 40 MG VIAL IV SCH (08:31)
[2022-02-27] MEDS: MULTIVITAMINS,THERAPEUTIC TABLET PO SCH (08:31)
[2022-02-27] MEDS: RIFAXIMIN 550 MG TABLET PO SCH (08:32)
[2022-02-27] MEDS ORDERED: SPIRONOLACTONE 50 MG TABLET PO SCH (09:00)
--- NOTE | 2022-02-27 09:45 | NUR ---
received in bed resting easily arousable. on 2 lpm nasal cannula satting 100%. no ss of pain or sob. sr on telemonitor. abdomen distended. on kci mattress. iv on left wrist intact and patent. no ss of infiltration or phlebitis. kept comfortable. safety measures in place. call light in reach and functional.
[2022-02-27 12:05] VITALS: BP 125/63
--- NOTE | 2022-02-27 13:50 | NUR ---
informed cm that unable to get ahold of [facility] to give report. no one is picking up. called more than 3 times.
--- NOTE | 2022-02-27 15:12 | NUR ---
gave report to chloé spencer at [facility]. apa here to pick pulling machine operator the patient. iv access and id band removed. left via gurney in stable condition.
[2022-02-27 19:11] LABS: BAND % (MANUAL) 2 % (0-10); LYMPHOCYTES % (MANUAL) 14 % (20-40); MONOCYTES % (MANUAL) 4 % (2-10); NEUTROPHILS % (MANUAL) 80 % (42-75)
== END 2022-02-27 15:10 | DRG 442 ==
LOC: ER 15:15 → TRANSITION 23:38 → TELE3 02-22 08:38
PROVIDERS: ADMIT Internal Medicine; ATTEND Internal Medicine
PROC: 30233N1 Transfusion of Nonautologous Red Blood Cells into Peripheral Vein, Percutaneous Approach (ICD-10-PCS; principal; 2022-02-22)
PROC: 0W9G3ZZ Drainage of Peritoneal Cavity, Percutaneous Approach (ICD-10-PCS; 2022-02-23)
DX: K72.90 Hepatic failure, unspecified without coma (principal); K76.6 Portal hypertension; D61.818 Other pancytopenia; R18.8 Other ascites; D68.59 Other primary thrombophilia; E44.1 Mild protein-calorie malnutrition; I13.2 Hypertensive heart and chronic kidney disease with heart failure and with stage 5 chronic kidney disease, or end stage renal disease; I85.10 Secondary esophageal varices without bleeding; K74.60 Unspecified cirrhosis of liver; D63.8 Anemia in other chronic diseases classified elsewhere; K31.89 Other diseases of stomach and duodenum; Z74.09 Other reduced mobility; Z86.16 Personal history of COVID-19; F03.90 Unspecified dementia, unspecified severity, without behavioral disturbance, psychotic disturbance, mood disturbance, and anxiety; I25.10 Atherosclerotic heart disease of native coronary artery without angina pectoris; I25.2 Old myocardial infarction; I45.10 Unspecified right bundle-branch block; I50.9 Heart failure, unspecified; E11.22 Type 2 diabetes mellitus with diabetic chronic kidney disease; N18.9 Chronic kidney disease, unspecified; R13.10 Dysphagia, unspecified; Z79.4 Long term (current) use of insulin; K22.2 Esophageal obstruction
CPT/HCPCS: 36415; 70030-TC; 71045; 83690; 83735; 84100; 85025; 85610; 86850; 86900; 86901; 86920; 93005; A4663; C9113; G0378; J1815; J1940; J2270; J2405; J3490; J7040; P9016; P9047